=== PATIENT | female | born 1980 | race American Indian/Alaskan Native ===

== ENCOUNTER 2017-10-19 13:29 | Emergency (ER) | payer MEDICARE ==
[2017-10-19 14:34] VITALS: BP 150/92
[2017-10-19] MEDS ORDERED: PERCOCET 5/325 PO ONE (15:37)
[2017-10-19] MEDS ORDERED: MOTRIN PO ONE (15:37)
[2017-10-19] MEDS: ROBAXIN PO ONE ×2 (16:20→17:28)
--- NOTE | 2017-10-19 16:35 | Cat Scan Report ---
FINAL REPORT EXAM: CT CERVICAL SPINE WO CON HISTORY: fall injury TECHNIQUE: Helical axial CT imaging of the cervical spine. Images are reconstructed in the sagittal and coronal planes. PRIORS: None. FINDINGS: The vertebral bodies have normal height and alignment. There is no evidence of fracture or subluxation. The paraspinous soft tissues are unremarkable. IMPRESSION: No evidence of acute fracture or subluxation.
--- NOTE | 2017-10-19 16:35 | Emergency Department Report ---
Blank Doc - Documentation Documentation: Patient is a 36-year-old black female who is presenting with neck pain. Patient states that she fell and was seen at another hospital approximately 6 days ago. Patient states multiple x-rays were done but she's had increased worsening pain of her neck. Patient also has some pain in the shoulder and wrist and ankles as well but states those are minor compared to her neck pain. Patient feels as though his heart doesn't keep her head lift it up. I did contact [facility] regarding her x-rays. Charge nurse reported to me that the x-ray of the C-spine was read as a poor film secondary to patient 's body habitus and that no acute process was seen however was recommended that the patient receive a CT noncontrast to rule out fracture if pain persisted. Patient did not receive a CT at that time. The patient will have a CT here to rule out any small fractures that may have been missed from the XR
--- NOTE | 2017-10-19 16:58 | Emergency Department Report ---
ED Fall HPI - General Chief Complaint: Medical Clearance Stated Complaint: FALL/LEFT SIDE PAIN Time Seen by Provider: 10/19/17 15:28 Source: patient Mode of arrival: Stretcher - History of Present Illness Initial Comments: This is a 36-year-old female nontoxic, well nourished in appearance, no acute signs of distress presents to the ED with c/o of neck pain status post fall 6 days ago. Patient stated she had a fall in [facility] in the bathroom and had several xrays. Patient describes pain as aching and worsening when movement of the neck. Patient stated she was prescribed Flexeril with no relief. Patient denies any bladder or bowel stability, head trauma, headache, fever, chills, nausea, vomiting, chest pain or shortness of breath. Patient states allergies to sulfa, albuterol, aspirin and penicillin. MD Complaint: fall -: days(s) (6) Fall From: standing Fall Witnessed: no Place Fall Occurred: other ([facility]) Loss of Consciousness: none Prolonged Down Time?: no Symptoms Prior to Fall: none Severity: mild Severity scale (0 -10): 8 Context: tripped/slipped Associated Symptoms: neck pain. denies: headache, numbness, weakness, chest paint, shortness of breath, abdominal pain, hematuria, unable to walk, lightheaded, vertigo, confusion - Related Data Home Medications Medication Instructions Recorded Confirmed Last Taken Elviteg/Tracey/Emtric/Tenofo Ala 1 each PO DAILY 12/01/16 12/01/16 11/30/16 [Genvoya (Nf)] Gabapentin [Neurontin] 300 mg PO BID 12/01/16 12/01/16 11/30/16 Insulin Glargine [Lantus] 70 units SQ QHS 12/01/16 12/01/16 11/30/16 QUEtiapine [SEROquel] 25 mg PO QHS 12/01/16 12/01/16 11/30/16 cloNIDine [Catapres] 0.1 mg PO DAILY 12/01/16 12/01/16 11/30/16 Previous Rx's Medication Instructions Recorded Last Taken Type Detemir (Nf) [Levemir (Nf)] 75 units SUB-Q QHS 30 Days units 12/04/16 Unknown Rx Fluconazole [Diflucan TAB] 150 mg PO ONCE #1 tablet 12/04/16 Unknown Rx Insulin Aspart Prot/Aspart(Nf) 15 units SQ TIDWM 30 Days 12/04/16 11/30/16 Rx [NovoLOG Mix 70/30 VIAL] Levofloxacin [Levaquin TAB] 750 mg PO Q24H #7 tablet 12/04/16 Unknown Rx Pantoprazole [Protonix TAB] 40 mg PO DAILY #14 tablet 12/04/16 Unknown Rx oxyCODONE /ACETAMINOPHEN [Percocet 1 tab PO BID PRN #10 tablet 12/04/16 Unknown Rx 5/325] HYDROcodone/ACETAMINOPHEN [[place] 1 each PO Q8H PRN #12 tablet 10/19/17 Unknown Rx 7.5-325 Tablet] methOCARBAMOL [Robaxin TAB] 500 mg PO BID #20 tab 10/19/17 Unknown Rx Allergies Allergy/AdvReac Type Severity Reaction Status Date / Time Sulfa (Sulfonamide Allergy Nausea Verified 09/09/13 16:39 Antibiotics) albuterol AdvReac Mild Unknown Verified 03/02/16 08:44 aspirin AdvReac Rash Verified 09/09/13 16:39 Penicillins AdvReac Rash Verified 09/09/13 16:39 ED Review of Systems ROS: Stated complaint: FALL/LEFT SIDE PAIN Other details as noted in HPI Constitutional: denies: chills, fever Eyes: denies: eye pain, eye discharge, vision change ENT: denies: ear pain, throat pain Respiratory: denies: cough, shortness of breath, wheezing Cardiovascular: denies: chest pain, palpitations Endocrine: no symptoms reported Gastrointestinal: denies: abdominal pain, nausea, diarrhea Genitourinary: denies: urgency, dysuria, discharge Musculoskeletal: denies: back pain, joint swelling, arthralgia Skin: denies: rash, lesions Neurological: denies: headache, weakness, paresthesias Psychiatric: denies: anxiety, depression Hematological/Lymphatic: denies: easy bleeding, easy bruising ED Past Medical Hx - Past Medical History Hx Hypertension: Yes Hx Congestive Heart Failure: Yes Hx Diabetes: Yes Hx Liver Disease: Yes (elevated liver enzymes) Hx Sickle Cell Disease: Yes (trait) Hx Seizures: No Hx Asthma: No Hx COPD: Yes Hx HIV: Yes Additional medical history: SLEEP APNEA - Surgical History Hx Pacemaker: No Hx Internal Defibrillator: No Hx Cholecystectomy: Yes (2012) Hx Breast Surgery: Yes (I&D AXILL[facility] 2012) - Social History Smoking Status: Never Smoker - Medications Home Medications: Home Medications Medication Instructions Recorded Confirmed Last Taken Type Elviteg/Tracey/Emtric/Tenofo Ala 1 each PO DAILY 12/01/16 12/01/16 11/30/16 History [Genvoya (Nf)] Gabapentin [Neurontin] 300 mg PO BID 12/01/16 12/01/16 11/30/16 History Insulin Glargine [Lantus] 70 units SQ QHS 12/01/16 12/01/16 11/30/16 History QUEtiapine [SEROquel] 25 mg PO QHS 12/01/16 12/01/16 11/30/16 History cloNIDine [Catapres] 0.1 mg PO DAILY 12/01/16 12/01/16 11/30/16 History Detemir (Nf) [Levemir (Nf)] 75 units SUB-Q QHS 30 Days units 12/04/16 Unknown Rx Fluconazole [Diflucan TAB] 150 mg PO ONCE #1 tablet 12/04/16 Unknown Rx Insulin Aspart Prot/Aspart(Nf) 15 units SQ TIDWM 30 Days 12/04/16 12/01/1611/30 Rx [NovoLOG Mix 70/30 VIAL] Levofloxacin [Levaquin TAB] 750 mg PO Q24H #7 tablet 12/04/16 Unknown Rx Pantoprazole [Protonix TAB] 40 mg PO DAILY #14 tablet 12/04/16 Unknown Rx oxyCODONE /ACETAMINOPHEN [Percocet 1 tab PO BID PRN #10 tablet 12/04/16 Unknown Rx 5/325] HYDROcodone/ACETAMINOPHEN [[place] 1 each PO Q8H PRN #12 tablet 10/19/17 Unknown Rx 7.5-325 Tablet] methOCARBAMOL [Robaxin TAB] 500 mg PO BID #20 tab 10/19/17 Unknown Rx ED Physical Exam - General Limitations: No Limitations General appearance: alert, in no apparent distress - Head Head exam: Present: atraumatic, normocephalic - Eye Eye exam: Present: normal appearance, PERRL, EOMI Pupils: Present: normal accommodation - ENT ENT exam: Present: normal exam, mucous membranes moist - Neck Neck exam: Present: normal inspection, tenderness, full ROM. Absent: meningismus, lymphadenopathy - Respiratory Respiratory exam: Present: normal lung sounds bilaterally. Absent: respiratory distress, wheezes, rales, rhonchi, stridor - Cardiovascular Cardiovascular Exam: Present: regular rate, normal rhythm, normal heart sounds. Absent: irregular rhythm, systolic murmur, diastolic murmur, rubs, gallop - GI/Abdominal GI/Abdominal exam: Present: soft, normal bowel sounds - Extremities Exam Extremities exam: Present: normal inspection, full ROM, normal capillary refill. Absent: tenderness - Back Exam Back exam: Present: normal inspection, full ROM, tenderness, paraspinal tenderness (cervical region). Absent: CVA tenderness (R), CVA tenderness (L), muscle spasm, vertebral tenderness, rash noted - Expanded Back Exam Expanded Back exam: Absent: saddle anesthesia Back exam: Negative Straight Leg Raising: Left, Right - Neurological Exam Neurological exam: Present: alert, oriented X3, normal gait - Psychiatric Psychiatric exam: Present: normal affect, normal mood - Skin Skin exam: Present: warm, dry, intact, normal color. Absent: rash ED Course Vital Signs 10/19/17 14:30 Temperature 98.2 F Pulse Rate 112 H Respiratory 18 Rate Blood Pressure 150/92 O2 Sat by Pulse 97 Oximetry - Reevaluation(s) Reevaluation #1: 10/19/17 16:59 Patient is speaking in full sentences with no signs of distress noted. - Consultations Consultation #1: 10/19/17 16:59 Patient has been consulted with Dr. Andrews about patient history, physical exam , and CT results and examined and screened patient and agrees to ED plan of care and discharge plan of care. ED Medical Decision Making - Medical Decision Making This is a 36-year-old female that presents with cervical muscle strain. Patient is stable and was examined by me and Dr. Andrews. Dr. Andrews contacted the hospital and spoken with charge nurse about previous xrays with no fractures. CT of cervical spine obtained in the ED within normal limits. Patient is notified of CT results with no questions noted by the apatient. There is no nuchal rigidity or stiffness neck present. Patient received a soft cervical collar at discharge. Patient also received Robaxin and [place] and was instructed not to operate any machinery while taking this as a cause drowsiness. Patient was referred to Follow-up with a primary care doctor in 3- 5 days or if symptoms worsen and continue return to emergency room as soon as possible. At time of discharge, the patient does not seem toxic or ill in appearance. No acute signs of distress noted. Patient agrees to discharge treatment plan of care. No further questions noted by the patient. Critical care attestation.: If time is entered above; I have spent that time in minutes in the direct care of this critically ill patient, excluding procedure time. ED Disposition Clinical Impression: Cervical muscle strain Qualifiers: Encounter type: initial encounter Qualified Code(s): S16.1XXA - Strain of muscle, fascia and tendon at neck level, initial encounter Disposition: TO HOME OR SELFCARE Is pt being admited?: No Does the pt Need Aspirin: No Condition: Stable Instructions: Muscle Strain (ED) Additional Instructions: Follow-up with a primary care doctor in 3-5 days or if symptoms worsen and continue return to emergency room as soon as possible. Prescriptions: HYDROcodone/ACETAMINOPHEN [[place] 7.5-325 Tablet] 1 each PO Q8H PRN #12 tablet PRN Reason: Pain methOCARBAMOL [Robaxin TAB] 500 mg PO BID #20 tab Referrals: SENAIT LAMAR DO [Primary Care Provider] - 3-5 Days PRIMARY CAREMD [Referring] - 3-5 Days [facility] [Outside] - 3-5 Days [facility] [Outside] - 3-5 Days Forms: Work/School Release Form(ED)
== END 2017-10-19 17:27 | disposition home or self-care (01) ==
LOC: ED 13:29
DX: S16.1XXA Strain of muscle, fascia and tendon at neck level, initial encounter (principal); I10 Essential (primary) hypertension; I50.9 Heart failure, unspecified; E11.9 Type 2 diabetes mellitus without complications; J44.9 Chronic obstructive pulmonary disease, unspecified; W18.30XA Fall on same level, unspecified, initial encounter; Y93.89 Activity, other specified; Y92.89 Other specified places as the place of occurrence of the external cause; Y99.8 Other external cause status
CPT/HCPCS: 72125

== ENCOUNTER 2019-09-03 10:54 | Inpatient (IN) | payer MEDICARE ==
[2019-09-03] MEDS ORDERED: FAMOTIDINE 20 MG/2 ML INJ IV ONE (11:24)
[2019-09-03] MEDS ORDERED: ONDANSETRON 4 MG/2 ML INJ IV ONE (11:24)
[2019-09-03] MEDS ORDERED: SODIUM CHLORIDE 0.9% 1000 ML 1,000 ML IV ONE ×3 (11:24→14:24)
[2019-09-03 12:11] LABS: Basophils % (Auto) 0.3 % (0.0-1.8); Eosinophils % (Auto) 0.3 % (0.0-4.3); Hematocrit 34.6 % (30.3-42.9); Hemoglobin 11.2 gm/dl (10.1-14.3); Lymphocytes # (Auto) 1.6 K/mm3 (1.2-5.4); Mean Corpuscular HGB Conc 32 % (30-34); Mean Corpuscular Volume 85 fl (79-97); Monocytes # (Auto) 0.6 K/mm3 (0.0-0.8); Monocytes % (Auto) 5.4 % (0.0-7.3); Platelet Count 627 K/mm3 (140-440); Red Blood Count 4.08 M/mm3 (3.65-5.03); Red Cell Distribution Width 16.5 % (13.2-15.2)
[2019-09-03 12:33] LABS: Alanine Aminotransferase 102 units/L (7-56); Albumin 2.6 g/dL (3.9-5); BUN/Creatinine Ratio 42; Blood Urea Nitrogen 42 mg/dL (7-17); Calcium 8.6 mg/dL (8.4-10.2); Hemolysis Index 2
--- NOTE | 2019-09-03 12:52 | XRay Report ---
CHEST 1 VIEW INDICATION / CLINICAL INFORMATION: chest pain. COMPARISON: 08/25/2019 FINDINGS: SUPPORT DEVICES: None. HEART / MEDIASTINUM: No significant abnormality. LUNGS / PLEURA: Right upper lobe opacity is unchanged. No pneumothorax. ADDITIONAL FINDINGS: No significant additional findings. IMPRESSION: Right upper lobe opacity is unchanged from 08/25/2019. No other abnormality is seen on today's exam. Signer Name: Clarke Pedro MD FACR Signed: 09/03/2019 12:47 PM Workstation Name: [id number]
[2019-09-03 12:53] LABS: HDL Cholesterol 24 mg/dL (40-59); LDL Cholesterol,Direct 44 mg/dL (50-130)
[2019-09-03 13:03] LABS: Partial Thromboplastin Time 51.4 Sec. (24.2-36.6)
[2019-09-03 13:07] LABS: INR 5.95 (0.87-1.13)
--- NOTE | 2019-09-03 14:06 | Cat Scan Report ---
. CTA CHEST WITH CONTRAST INDICATION : chest pain. TECHNIQUE: Axial imaging performed through the chest, with contrast bolus timing set to maximize opa cification of the pulmonary arteries. Sagittal and coronal reformatted images. 3-plane MIP reformatte d images were obtained. All CT scans at this location are performed using CT dose reduction for ALAR A by means of automated exposure control. 100 mL of intravenous contrast administered. COMPARISON: None FINDINGS: Bolus: Contrast bolus timing is adequate. PTE: No filling defect is present to suggest PTE. Mediastinum: Heart size is normal although there is a large pericardial effusion measuring up to 1.9 cm in thickness anteriorly. No pericardial calcifications or nodularity. The aorta is widely patent and normal caliber. No pathologic mediastinal adenopathy. Lungs: Small bilateral layering pleural effusions are identified. There is ill-defined groundglass o pacity in the right upper lobe measuring up to 4-5 cm in greatest dimension. This probably represents focal congestion although early infiltrate cannot be excluded. There is mild compressive atelectasis in the lower lobes, left greater than right. The remainder of the lungs are clear. Bones: Degenerative changes in the spine with nothing acute. Upper abdomen: Limited imaging of the upper abdomen shows nothing acute. IMPRESSION: No pulmonary embolus is detected. Large pericardial effusion. Small bilateral layering pleural effusions. Focal right upper lobe airspace opacity as described. This probably represents focal congestion. If f ever is present, infiltrate could be considered. Signer Name: Jarod Ta Jr, MD Signed: 09/03/2019 2:01 PM Workstation Name: [id number]
--- NOTE | 2019-09-03 14:14 | Cat Scan Report ---
CT ABDOMEN AND PELVIS WITH CONTRAST HISTORY: Abdominal pain COMPARISON: None. TECHNIQUE: Axial CT images were obtained through the abdomen and pelvis after 100 cc of Omnipaque 300 intravenously. Sagittal and coronal reformatted images. All CT scans at this location are performed using CT dose reduction for ALARA by means of automated exposure control. FINDINGS: CT ABDOMEN: Lung Bases: Small bilateral layering pleural effusions and large pericardial effusion are noted. Liver: No significant abnormality. Biliary: Cholecystectomy. Spleen: The spleen is normal size and contour. A 3.9 x 3.0 x 2.2 cm hypodensity is identified along t he superior border of the spleen. Pancreas: No significant abnormality. Adrenals: No significant abnormality. Kidneys: No significant abnormality. Lymphatics: There are a few borderline to mildly enlarged retroperitoneal lymph nodes. An aortocaval lymph node measures 2.1 x 1.5 cm on image 79, series 3. A left periaortic lymph node measures 1.9 x 1 .6 on image 87, series 3. Vasculature: No significant abnormality. Bowel/Peritoneum: No evidence for bowel obstruction or focal inflammation. The appendix is not confid ently identified, correlate with surgical history. There is small to trace ascites in the abdomen. No free air. CT PELVIS: : The uterus, adnexa and bladder are unremarkable. Osseous Structures: Mild lumbar spondylosis. Additional Findings: None IMPRESSION: Large pericardial effusion and small bilateral pleural effusions. Small ascites. A 3.9 x 3.0 x 2.2 cm splenic hypodensity is identified of uncertain etiology. This does not have the typical appearance of a splenic hemangioma. A small splenic infarct or perisplenic collection could b e considered. No acute inflammatory process is appreciated in the abdomen or pelvis. Signer Name: Jarod Ta Jr, MD Signed: 09/03/2019 2:10 PM Workstation Name: [id number]
[2019-09-03] MEDS ORDERED: INSULIN REGULAR, HUMAN 100 UNITS/1 ML IV ONE (14:24)
[2019-09-03] MEDS ORDERED: SODIUM BICARB 8.4% 50 MEQ/50 ML SYRINGE IV ONE (14:24)
[2019-09-03] MEDS ORDERED: DEXTROSE 50% IN WATER (25GM) 50 ML SYRINGE IV ONE (14:24)
[2019-09-03] MEDS ORDERED: KETOROLAC 30 MG/1 ML INJ IV ONE (14:41)
[2019-09-03] MEDS ORDERED: diphenhydrAMINE 50 MG/ML VIAL IV ONE (14:41)
--- NOTE | 2019-09-03 15:09 | Emergency Department Report ---
ED General Adult HPI - General Chief complaint: Chest Pain Stated complaint: CHEST PAIN Time Seen by Provider: 09/03/19 11:23 Source: patient, family, EMS Mode of arrival: Stretcher Limitations: No Limitations - History of Present Illness Initial comments: Patient is a 38-year-old F Iranian female who recently was treated here in our hospital for a acute anterior wall ST elevation CA. Patient had a PCI and stent was placed in the LAD. Patient also was found to have a left ventricular thrombus and was started on Coumadin. Patient has a history of hypertension and is HIV positive as well. Patient states that yesterday she started having returns with chest discomfort as well as epigastric pain she has had several episodes of nausea vomiting. Patient states that her arms and legs were swollen. She denies any current fever cough cold or congestion. She does state that her chest discomfort is worse with deep breathing. Severity scale (0 -10): 8 - Related Data Previous Rx's Medication Instructions Recorded Last Taken Type Detemir (Nf) [Levemir (Nf)] 75 units SUB-Q QHS 30 Days units 12/04/16 Unknown Rx Fluconazole [Diflucan TAB] 150 mg PO ONCE #1 tablet 12/04/16 08/17/19 Rx HYDROcodone/ACETAMINOPHEN [[place] 1 each PO Q8H PRN #12 tablet 10/19/17 08/17/19 Rx 7.5-325 Tablet] ALBUTEROL NEB's [Proventil 0.083% 2.5 mg IH Q4HRT PRN #1 nebu 08/30/19 Unknown Rx NEBS] AtorvaSTATin [Lipitor] 40 mg PO QHS #30 tablet 08/30/19 Unknown Rx Elviteg/Tracey/Emtric/Tenofo [place] 1 each PO DAILY 30 Days #30 08/30/19 Unknown Rx [Genvoya (Nf)] Gabapentin 300 mg PO BID #60 cap 08/30/19 Unknown Rx Insulin Aspart Prot/Aspart(Nf) 25 units SQ BID 30 Days units 08/30/19 Unknown Rx [NovoLOG Mix 70/30 VIAL] Pantoprazole [Protonix TAB] 40 mg PO DAILY #30 tablet 08/30/19 Unknown Rx QUEtiapine [SEROquel] 25 mg PO QHS #30 08/30/19 Unknown Rx Ticagrelor [Brilinta] 90 mg PO BID #60 tablet 08/30/19 Unknown Rx Warfarin [Coumadin] 7.5 mg PO DAILY@1700 #30 tablet 08/30/19 Unknown Rx carvediloL [Coreg] 25 mg PO BID #60 tablet 08/30/19 Unknown Rx cloNIDine [Catapres] 0.1 mg PO BID PRN #60 08/30/19 Unknown Rx lisinopriL [Zestril TAB] 20 mg PO QDAY #30 tablet 08/30/19 Unknown Rx methOCARBAMOL [Robaxin TAB] 500 mg PO PRN #40 08/30/19 Unknown Rx oxyCODONE /ACETAMINOPHEN [Percocet 1 tab PO BID PRN #10 tablet 08/30/19 Unknown Rx 5/325 mg] Allergies Allergy/AdvReac Type Severity Reaction Status Date / Time Sulfa (Sulfonamide Allergy Nausea Verified 09/09/13 16:39 Antibiotics) albuterol AdvReac Mild Unknown Verified 03/02/16 08:44 aspirin AdvReac Rash Verified 09/09/13 16:39 Penicillins AdvReac Rash Verified 09/09/13 16:39 ED Review of Systems ROS: Stated complaint: CHEST PAIN Other details as noted in HPI Comment: All other systems reviewed and negative ED Past Medical Hx - Past Medical History Hx Hypertension: Yes Hx Congestive Heart Failure: Yes Hx Diabetes: Yes Hx Liver Disease: Yes (elevated liver enzymes) Hx Sickle Cell Disease: Yes (trait) Hx Seizures: No Hx Asthma: No Hx COPD: Yes Hx HIV: Yes Additional medical history: SLEEP APNEA - Surgical History Hx Pacemaker: No Hx Internal Defibrillator: No Hx Cholecystectomy: Yes (2012) Hx Breast Surgery: Yes (I&D AXILLARY ABCSESS 2012) - Social History Smoking Status: Never Smoker - Medications Home Medications: Home Medications Medication Instructions Recorded Confirmed Last Taken Type Detemir (Nf) [Levemir (Nf)] 75 units SUB-Q QHS 30 Days units 12/04/16 08/24/19 Unknown Rx Fluconazole [Diflucan TAB] 150 mg PO ONCE #1 tablet 12/04/16 08/24/19 08/17/19 Rx HYDROcodone/ACETAMINOPHEN [[place] 1 each PO Q8H PRN #12 tablet 10/19/17 08/24/19 08/17/19 Rx 7.5-325 Tablet] ALBUTEROL NEB's [Proventil 0.083% 2.5 mg IH Q4HRT PRN #1 nebu 08/30/19 Unknown Rx NEBS] AtorvaSTATin [Lipitor] 40 mg PO QHS #30 tablet 08/30/19 Unknown Rx Elviteg/Tracey/Emtric/Ten[place] 1 each PO DAILY 30 Days #30 08/30/19 Unknown Rx [Genvoya (Nf)] Gabapentin 300 mg PO BID #60 cap 08/30/19 Unknown Rx Insulin Aspart Prot/Aspart(Nf) 25 units SQ BID 30 Days units 08/30/19 Unknown Rx [NovoLOG Mix 70/30 VIAL] Pantoprazole [Protonix TAB] 40 mg PO DAILY #30 tablet 08/30/19 Unknown Rx QUEtiapine [SEROquel] 25 mg PO QHS #30 08/30/19 Unknown Rx Ticagrelor [Brilinta] 90 mg PO BID #60 tablet 08/30/19 Unknown Rx Warfarin [Coumadin] 7.5 mg PO DAILY@1700 #30 tablet 08/30/19 Unknown Rx carvediloL [Coreg] 25 mg PO BID #60 tablet 08/30/19 Unknown Rx cloNIDine [Catapres] 0.1 mg PO BID PRN #60 08/30/19 Unknown Rx lisinopriL [Zestril TAB] 20 mg PO QDAY #30 tablet 08/30/19 Unknown Rx methOCARBAMOL [Robaxin TAB] 500 mg PO PRN #40 08/30/19 Unknown Rx oxyCODONE /ACETAMINOPHEN [Percocet 1 tab PO BID PRN #10 tablet 08/30/19 Unknown Rx 5/325 mg] ED Physical Exam - General Limitations: No Limitations General appearance: alert, in distress - Head Head exam: Present: atraumatic, normocephalic - Eye Eye exam: Present: normal appearance. Absent: PERRL, EOMI - ENT ENT exam: Present: mucous membranes moist - Neck Neck exam: Present: normal inspection - Respiratory Respiratory exam: Present: normal lung sounds bilaterally, respiratory distress (Tachypnea). Absent: wheezes, rales, rhonchi - Cardiovascular Cardiovascular Exam: Present: regular rate, normal rhythm, normal heart sounds. Absent: systolic murmur, diastolic murmur, rubs, gallop - GI/Abdominal GI/Abdominal exam: Present: soft, tenderness (Epigastric), normal bowel sounds. Absent: distended, guarding - Extremities Exam Extremities exam: Present: normal inspection, pedal edema - Back Exam Back exam: Present: normal inspection - Neurological Exam Neurological exam: Present: alert, oriented X3 - Psychiatric Psychiatric exam: Present: normal affect, normal mood - Skin Skin exam: Present: warm, dry, intact, normal color. Absent: rash ED Course Vital Signs 09/03/19 09/03/19 09/03/19 11:12 11:15 11:45 Temperature Pulse Rate 83 Respiratory 27 H Rate Blood Pressure 92/48 91/50 Blood Pressure [Left] O2 Sat by Pulse 100 99 98 Oximetry 09/03/19 09/03/19 09/03/19 12:00 12:23 12:30 Temperature 98.4 F Pulse Rate 84 83 81 Respiratory 29 H 19 32 H Rate Blood Pressure 82/48 91/49 Blood Pressure 91/49 [Left] O2 Sat by Pulse 97 98 98 Oximetry 09/03/19 09/03/19 13:30 13:45 Temperature Pulse Rate 85 Respiratory 35 H Rate Blood Pressure 98/58 95/64 Blood Pressure [Left] O2 Sat by Pulse 95 97 Oximetry ED Medical Decision Making - Lab Data Result diagrams: 09/03/19 11:53 09/03/19 11:53 Lab Results 09/03/19 09/03/19 09/03/19 Range/Units 11:53 11:53 11:53 WBC 10.9 (4.5-11.0) K/mm3 RBC 4.08 (3.65-5.03) M/mm3 Hgb 11.2 (10.1-14.3) gm/dl Hct 34.6 (30.3-42.9) % MCV 85 (79-97) fl MCH 28 (28-32) pg MCHC 32 (30-34) % RDW 16.5 H (13.2-15.2) % Plt Count 627 H (140-440) K/mm3 Lymph % (Auto) 15.0 (13.4-35.0) % [place] % (Auto) 5.4 (0.0-7.3) % Eos % (Auto) 0.3 (0.0-4.3) % Baso % (Auto) 0.3 (0.0-1.8) % Lymph # 1.6 (1.2-5.4) K/mm3 [place] # 0.6 (0.0-0.8) K/mm3 Eos # 0.0 (0.0-0.4) K/mm3 Baso # 0.0 (0.0-0.1) K/mm3 Seg Neutrophils % 79.0 H (40.0-70.0) % Seg Neutrophils # 8.6 H (1.8-7.7) K/mm3 PT (12.2-14.9) Sec. INR (0.87-1.13) APTT (24.2-36.6) Sec. Sodium (137-145) mmol/L Potassium (3.6-5.0) mmol/L Chloride (98-107) mmol/L Carbon Dioxide (22-30) mmol/L Anion Gap mmol/L BUN (7-17) mg/dL Creatinine (0.7-1.2) mg/dL Estimated GFR ml/min BUN/Creatinine Ratio % Glucose (65-100) mg/dL Calcium (8.4-10.2) mg/dL Total Bilirubin (0.1-1.2) mg/dL AST (5-40) units/L ALT (7-56) units/L Alkaline Phosphatase (35-129) units/L Troponin T (0.00-0.029) ng/mL NT-Pro-B Natriuret Pep 1401 H (0-450) pg/mL Total Protein (6.3-8.2) g/dL Albumin (3.9-5) g/dL Albumin/Globulin Ratio % Triglycerides (2-149) mg/dL Cholesterol (50-199) mg/dL LDL Cholesterol Direct (50-130) mg/dL HDL Cholesterol (40-59) mg/dL Cholesterol/HDL Ratio % Lipase (13-60) units/L HCG, Qual Negative (Negative) 09/03/19 09/03/19 Range/Units 11:53 12:36 WBC (4.5-11.0) K/mm3 RBC (3.65-5.03) M/mm3 Hgb (10.1-14.3) gm/dl Hct (30.3-42.9) % MCV (79-97) fl MCH (28-32) pg MCHC (30-34) % RDW (13.2-15.2) % Plt Count (140-440) K/mm3 Lymph % (Auto) (13.4-35.0) % [place] % (Auto) (0.0-7.3) % Eos % (Auto) (0.0-4.3) % Baso % (Auto) (0.0-1.8) % Lymph # (1.2-5.4) K/mm3 [place] # (0.0-0.8) K/mm3 Eos # (0.0-0.4) K/mm3 Baso # (0.0-0.1) K/mm3 Seg Neutrophils % (40.0-70.0) % Seg Neutrophils # (1.8-7.7) K/mm3 PT 54.8 H (12.2-14.9) Sec. INR 5.95 H* (0.87-1.13) APTT 51.4 H (24.2-36.6) Sec. Sodium 124 L (137-145) mmol/L Potassium 7.1 H* (3.6-5.0) mmol/L Chloride 90.1 L (98-107) mmol/L Carbon Dioxide 19 L (22-30) mmol/L Anion Gap 22 mmol/L BUN 42 H (7-17) mg/dL Creatinine 1.0 (0.7-1.2) mg/dL Estimated GFR > 60 ml/min BUN/Creatinine Ratio 42 % Glucose 461 H (65-100) mg/dL Calcium 8.6 (8.4-10.2) mg/dL Total Bilirubin 0.20 (0.1-1.2) mg/dL AST 114 H (5-40) units/L ALT 102 H (7-56) units/L Alkaline Phosphatase 619 H (35-129) units/L Troponin T 1.110 H* (0.00-0.029) ng/mL NT-Pro-B Natriuret Pep (0-450) pg/mL Total Protein 7.1 (6.3-8.2) g/dL Albumin 2.6 L (3.9-5) g/dL Albumin/Globulin Ratio 0.6 % Triglycerides 134 (2-149) mg/dL Cholesterol 84 (50-199) mg/dL LDL Cholesterol Direct 44 L (50-130) mg/dL HDL Cholesterol 24 L (40-59) mg/dL Cholesterol/HDL Ratio 3.50 % Lipase 35 (13-60) units/L HCG, Qual (Negative) - EKG Data -: EKG Interpreted by Vt - EKG Data 09/03/19 15:08 EKG shows sinus rhythm a rate of 84 [place] is normal intervals normal there is slight [address] elevation in 1 and aVL. There is poor R wave progression present. This was compared to EKG from 08/24/2019 which showed that the patient did have an acute anterior lateral infarct. EKG today does show great improvement of the ST segments compared to previous. - Radiology Data Reporting MD: Clarke Pedro Dictation Time: September 03, 2019 11:47 Marble Installer: Not available Supervisor Tree Trimming Date: CHEST 1 VIEW INDICATION / CLINICAL INFORMATION: chest pain. COMPARISON: 08/25/2019 FINDINGS: SUPPORT DEVICES: None. HEART / MEDIASTINUM: No significant abnormality. LUNGS / PLEURA: Right upper lobe opacity is unchanged. No pneumothorax. ADDITIONAL FINDINGS: No significant additional findings. IMPRESSION: Right upper lobe opacity is unchanged from 08/25/2019. No other abnormality is seen on today's exam. Signer Name: Clarke Pedro MD FACR Signed: 09/03/2019 11:47 AM Workstation Name: [id number] . CTA CHEST WITH CONTRAST INDICATION : chest pain. TECHNIQUE: Axial imaging performed through the chest, with contrast bolus timing set to maximize opacification of the pulmonary arteries. Sagittal and coronal reformatted images. 3-plane MIP reformatted images were obtained. All CT scans at this location are performed using CT dose reduction for ALARA by means of automated exposure control. 100 mL of intravenous contrast administered. COMPARISON: None FINDINGS: Bolus: Contrast bolus timing is adequate. PTE: No filling defect is present to suggest PTE. Mediastinum: Heart size is normal although there is a large pericardial effusion measuring up to 1.9 cm in thickness anteriorly. No pericardial calcifications or nodularity. The aorta is widely patent and normal caliber. No pathologic mediastinal adenopathy. Lungs: Small bilateral layering pleural effusions are identified. There is ill-defined groundglass opacity in the right upper lobe measuring up to 4-5 cm in greatest dimension. This probably represents focal congestion although early infiltrate cannot be excluded. There is mild compressive atelectasis in the lower lobes, left greater than right. The remainder of the lungs are clear. Bones: Degenerative changes in the spine with nothing acute. Upper abdomen: Limited imaging of the upper abdomen shows nothing acute. IMPRESSION: No pulmonary embolus is detected. Large pericardial effusion. Small bilateral layering pleural effusions. Focal right upper lobe airspace opacity as described. This probably represents focal congestion. If fever is present, infiltrate could be considered. Signer Name: Jarod Ta Jr, MD CT ABDOMEN AND PELVIS WITH CONTRAST HISTORY: Abdominal pain COMPARISON: None. TECHNIQUE: Axial CT images were obtained through the abdomen and pelvis after 100 cc of Omnipaque 300 intravenously. Sagittal and coronal reformatted images. All CT scans at this location are performed using CT dose reduction for ALARA by means of automated exposure control. FINDINGS: CT ABDOMEN: Lung Bases: Small bilateral layering pleural effusions and large pericardial effusion are noted. Liver: No significant abnormality. Biliary: Cholecystectomy. Spleen: The spleen is normal size and contour. A 3.9 x 3.0 x 2.2 cm hypodensity is identified along the superior border of the spleen. Pancreas: No significant abnormality. Adrenals: No significant abnormality. Kidneys: No significant abnormality. Lymphatics: There are a few borderline to mildly enlarged retroperitoneal lymph nodes. An aortocaval lymph node measures 2.1 x 1.5 cm on image 79, series 3. A left periaortic lymph node measures 1.9 x 1.6 on image 87, series 3. Vasculature: No significant abnormality. Bowel/Peritoneum: No evidence for bowel obstruction or focal inflammation. The appendix is not confidently identified, correlate with surgical history. There is small to trace ascites in the abdomen. No free air. CT PELVIS: : The uterus, adnexa and bladder are unremarkable. Osseous Structures: Mild lumbar spondylosis. Additional Findings: None IMPRESSION: Large pericardial effusion and small bilateral pleural effusions. Small ascites. A 3.9 x 3.0 x 2.2 cm splenic hypodensity is identified of uncertain etiology. This does not have the typical appearance of a splenic hemangioma. A small splenic infarct or perisplenic collection could be consi dered. No acute inflammatory process is appreciated in the abdomen or pelvis. Signer Name: Jarod Ta Jr, MD Signed - Medical Decision Making Patient is a 38-year-old F Iranian female status post CA treated with LAD stent. Patient is presented with chest discomfort and hypotension. Reviewed the patient's laboratory studies she does appear to be dehydrated. Patient states she has been trying to keep food down but started vomiting earlier today. Patient states that she is been compliant with her medications. Patient was started on IV fluids and her blood pressures responded well. Patient sodium chloride level low and the patient is prerenal supporting the diagnosis of dehydration. Patient also has elevated potassium which is not hemolyzed. Pat ient was given sodium bicarb D50 and 10 of insulin. Patient is shown to have a pericardial effusion which was not present on the echocardiogram earlier this week. Patient will have a stat echocardiogram ordered. Dr. Fierro with cardiology service has been consulted and will see the patient. Patient will be admitted to the ICU. Critical Care Time: Yes (45) Critical care attestation.: If time is entered above; I have spent that time in minutes in the direct care of this critically ill patient, excluding procedure time. ED Disposition Clinical Impression: Pericardial effusion, Pleural effusion, Respiratory distress, Acute renal insufficiency, Dehydration, Hyperkalemia, Hyponatremia, Hypochloremia Disposition: OP ADMIT IP TO THIS HOSP Is pt being admited?: Yes Does the pt Need Aspirin: No Condition: Stable Time of Disposition: 15:15
[2019-09-03] MEDS ORDERED: HYDROcodone/ACETAMINOPHEN 7.5-325MG TAB PO PRN (16:15)
[2019-09-03] MEDS ORDERED: DOCUSATE SODIUM 100 MG CAP PO PRN (16:15)
[2019-09-03] MEDS ORDERED: ALBUTEROL 2.5 MG/3 ML NEBU IH PRN (16:15)
[2019-09-03] MEDS ORDERED: LISINOPRIL 20 MG TAB PO SCH (17:00)
[2019-09-03] MEDS ORDERED: WARFARIN NO DOSE TODAY PO ONE (17:00)
[2019-09-03] MEDS ORDERED: WARFARIN 7.5 MG TAB PO SCH (17:00)
--- NOTE | 2019-09-03 18:09 | Consultation ---
History of Present Illness Consult date: 09/03/19 Consult reason: congestive heart failure, other (pericardial effusion) History of present illness: The patient is a 38-year-old woman with multiple medical problems. She has a history of cervical cancer, hepatitis C disease, and states that she lives in a home hospice condition. Last week, she was admitted to the hospital with acute coronary syndrome, underwent a cardiac catheterization with coronary intervention and the 3.0 mm bare-metal stent placed to the mid LAD. Post intervention, there was a thrombotic occlusion of the distal LAD which was recommended for medical management, did not respond to export catheter thromb ectomy. On echocardiogram, there was relatively well present left ventricular ejection fraction of 40-45%, but there was apical hypokinesis associated with a laminated thrombus. As a consequence she was discharged on dual oral antiplatelet therapy as well as warfarin. She presents to the hospital today, 4 days post discharge, with shortness of breath, atypical chest pain. In the emergency room, a CT of the chest was ordered that reported the presence of a pericardial effusion. We performed a limited bedside 2-D echocardiogram that revealed a small to moderate-sized circumferential pericardial effusion, with no signs of cardiac tamponade. The effusion was not present on the echocardiogram just 5 days ago. In addition, there has been a deterioration in left ventricular systolic function, currently overall left ventricular systolic function is moderately to severely impaired. Laboratory values show a severe hyperkalemia, of 7.1, hyponatremia 124, elevated BUN of 42, and elevated liver transaminases. There is a mild troponin elevation, and the INR is 5.9, supratherapeutic on warfarin. EKG is sinus rhythm with QS complexes in the anterior wall, consistent with her recent anter ior myocardial infarction. Past History Past Medical History: acute GA, CAD, COPD Medications and Allergies Allergies Allergy/AdvReac Type Severity Reaction Status Date / Time Sulfa (Sulfonamide Allergy Nausea Verified 09/09/13 16:39 Antibiotics) albuterol AdvReac Mild Unknown Verified 03/02/16 08:44 aspirin AdvReac Rash Verified 09/09/13 16:39 Penicillins AdvReac Rash Verified 09/09/13 16:39 Home Medications Medication Instructions Recorded Confirmed Last Taken Type Detemir (Nf) [Levemir (Nf)] 75 units SUB-Q QHS 30 Days units 12/04/16 09/03/19 Unknown Rx Fluconazole [Diflucan TAB] 150 mg PO ONCE #1 tablet 12/04/16 09/03/19 08/17/19 Rx HYDROcodone/ACETAMINOPHEN [[place] 1 each PO Q8H PRN #12 tablet 10/19/17 09/03/19 08/17/19 Rx 7.5-325 Tablet] ALBUTEROL NEB's [Proventil 0.083% 2.5 mg IH Q4HRT PRN #1 nebu 08/30/19 09/03/19 Unknown Rx NEBS] AtorvaSTATin [Lipitor] 40 mg PO QHS #30 tablet 08/30/19 09/03/19 Unknown Rx Elviteg/Tracey/Emtric/Tenofo Ala 1 each PO DAILY 30 Days #30 08/30/19 09/03/19 Unknown Rx [Genvoya (Nf)] Gabapentin 300 mg PO BID #60 cap 08/30/19 09/03/19 Unknown Rx Insulin Aspart Prot/Aspart(Nf) 25 units SQ BID 30 Days units 08/30/19 09/03/19 Unknown Rx [NovoLOG Mix 70/30 VIAL] Pantoprazole [Protonix TAB] 40 mg PO DAILY #30 tablet 08/30/19 09/03/19 Unknown Rx QUEtiapine [SEROquel] 25 mg PO QHS #30 08/30/19 09/03/19 Unknown Rx Ticagrelor [Brilinta] 90 mg PO BID #60 tablet 08/30/19 09/03/19 Unknown Rx Warfarin [Coumadin] 7.5 mg PO DAILY@1700 #30 tablet 08/30/19 09/03/19 Unknown Rx carvediloL [Coreg] 25 mg PO BID #60 tablet 08/30/19 09/03/19 Unknown Rx cloNIDine [Catapres] 0.1 mg PO BID PRN #60 08/30/19 09/03/19 Unknown Rx lisinopriL [Zestril TAB] 20 mg PO QDAY #30 tablet 08/30/19 09/03/19 Unknown Rx methOCARBAMOL [Robaxin TAB] 500 mg PO PRN #40 08/30/19 09/03/19 Unknown Rx oxyCODONE /ACETAMINOPHEN [Percocet 1 tab PO BID PRN #10 tablet 08/30/19 09/03/19 Unknown Rx 5/325 mg] Docusate Sodium [Colace] 100 mg PO BID PRN 09/03/19 09/03/19 Unknown History Active Meds: Active Medications Acetaminophen/Hydrocodone Bitart ([place] 7.5/325) 1 each PO Q8H PRN PRN Reason: PAIN Albuterol (Proventil) 2.5 mg IH Q4HRT PRN PRN Reason: Shortness Of Breath Carvedilol (Coreg) 12.5 mg PO BID CRISTIAN Docusate Sodium (Colace) 100 mg PO BID PRN PRN Reason: conatipATION Insulin Human Isoph/Insulin Regular (Humulin 70/30) 25 unit SUB-Q BID CRISTIAN Lisinopril (Zestril) 10 mg PO QDAY CRISTIAN Last Admin: 09/03/19 17:48 Dose: Not Given Documented by: Methocarbamol (Robaxin) 500 mg PO PRN CRISTIAN Miscellaneous Medication (Elviteg/Tracey/Emtric/Tenofo Ala) 1 each PO DAILY CRISTIAN Pantoprazole Sodium (Protonix) 40 mg PO DAILY CRISTIAN Quetiapine Fumarate (Seroquel) 25 mg PO QHS CRISTIAN Ticagrelor (Brilinta) 90 mg PO BID CRISTIAN Review of Systems Cardiovascular: chest pain, shortness of breath, no orthopnea, no palpitations, no rapid/irregular heart beat, no edema, no syncope, no lightheadedness Physical Examination Vital Signs Pulse Ox 100 09/03/19 11:12 General appearance: no acute distress, obese HEENT: Positive: PERRL Neck: Positive: neck supple Cardiac: Positive: Reg Rate and Rhythm Lungs: Positive: Decreased Breath Sounds Neuro: Positive: Grossly Intact Abdomen: Positive: Soft Female genitourinary: deferred Skin: Positive: Clear Extremities: Absent: edema Results 09/03/19 11:53 09/03/19 11:53 Cardiac Enzymes 09/03/19 Range/Units 11:53 AST 114 H (5-40) units/L Coagulation 09/03/19 Range/Units 12:36 PT 54.8 H (12.2-14.9) Sec. INR 5.95 H* (0.87-1.13) APTT 51.4 H (24.2-36.6) Sec. Lipids 09/03/19 Range/Units 11:53 Triglycerides 134 (2-149) mg/dL Cholesterol 84 (50-199) mg/dL HDL Cholesterol 24 L (40-59) mg/dL Cholesterol/HDL Ratio 3.50 % CBC 09/03/19 Range/Units 11:53 WBC 10.9 (4.5-11.0) K/mm3 RBC 4.08 (3.65-5.03) M/mm3 Hgb 11.2 (10.1-14.3) gm/dl Hct 34.6 (30.3-42.9) % Plt Count 627 H (140-440) K/mm3 Lymph # 1.6 (1.2-5.4) K/mm3 [place] # 0.6 (0.0-0.8) K/mm3 Eos # 0.0 (0.0-0.4) K/mm3 Baso # 0.0 (0.0-0.1) K/mm3 Comprehensive Metabolic Panel 09/03/19 Range/Units 11:53 Sodium 124 L (137-145) mmol/L Potassium 7.1 H* (3.6-5.0) mmol/L Chloride 90.1 L (98-107) mmol/L Carbon Dioxide 19 L (22-30) mmol/L BUN 42 H (7-17) mg/dL Creatinine 1.0 (0.7-1.2) mg/dL Glucose 461 H (65-100) mg/dL Calcium 8.6 (8.4-10.2) mg/dL AST 114 H (5-40) units/L ALT 102 H (7-56) units/L Alkaline Phosphatase 619 H (35-129) units/L Total Protein 7.1 (6.3-8.2) g/dL Albumin 2.6 L (3.9-5) g/dL EKG interpretations - Telemetry EKG Rhythm: Sinus Rhythm Assessment and Plan - Patient Problems (1) Pericardial effusion Current Visit: Yes Status: Acute Plan to address problem: Pericardial effusion is small to moderate, with no cardiac tamponade. The etiology of the effusion is unclear at this time, we will get serial echocardiograms for follow-up. (2) Ischemic cardiomyopathy Current Visit: Yes Status: Acute Plan to address problem: Continue medical therapy for coronary artery disease and ischemic cardiomyopathy including dual antiplatelet therapy for recent coronary stent procedure. I will stop atorvastatin therapy in the setting of abnormal liver function tests. (3) Left ventricular apical thrombus Current Visit: Yes Status: Acute Plan to address problem: INR was supratherapeutic, warfarin will be held initially, and restarted at lower doses for a target INR of 2.0-3.0. Continue warfarin therapy will have to be carefully considered in this setting of a history of hepatitis C and her abnormal LFTs.
[2019-09-03] MEDS: PANTOPRAZOLE 40 MG TAB PO SCH (18:36)
[2019-09-03] MEDS ORDERED: PANTOPRAZOLE 40 MG TAB PO ONE (18:36)
[2019-09-03] MEDS ORDERED: QUEtiapine 25 MG TAB PO SCH (22:00)
[2019-09-03] MEDS ORDERED: carvediloL 25 MG TAB PO SCH (22:00)
[2019-09-03] MEDS ORDERED: ASPART SQ SCH (22:00)
[2019-09-03] MEDS ORDERED: INSULIN ASPART PROT SQ SCH (22:00)
[2019-09-03] MEDS ORDERED: SODIUM CHLORIDE 0.9% 1000 ML 1,000 ML IV SCH (22:00)
[2019-09-03] MEDS ORDERED: CALCIUM GLUCONATE 2,000 MG in SODIUM CHLORIDE 0.9% 100 ML IV ONE (22:00)
[2019-09-03] MEDS: TICAGRELOR 90 MG TAB PO SCH (23:01)
[2019-09-03] MEDS: GABAPENTIN 300 MG CAP PO SCH (23:03)
[2019-09-03] MEDS: INSULIN NPH/REGULAR 70/30 INJ SUB-Q SCH (23:23)
[2019-09-04] MEDS: MORPHINE 2 MG/1 ML INJ IV PRN ×3 (00:57→10:16)
--- NOTE | 2019-09-04 06:53 | History and Physical Report ---
History of Present Illness Date of examination: 09/03/19 Date of admission: 09/03/19 15:15 Chief complaint: Feeeling weak 3 days History of present illness: 38-year-old F [place] female who recently was treated here for STEMI --had a PCI and stent placed in the LAD. Patient also was found to have a left ventricular thrombus and was started on Coumadin. Patient has a history of hypertension and is HIV positive as well. Patient states that yesterday she started having chest discomfort as well as epigastric pain she has had several episodes of nausea vomiting. Patient states that her arms and legs were swollen. She denies any current fever cough cold or congestion. She does state that her chest discomfort is worse with deep breathing. Her BP was low in ED 79/46 Dischare summary 08/30/2019 38-year-old morbidly obese -[place]ian female patient with significant past medical history of HIV hypertension diabetes mellitus coronary artery disease presented to the emergency room with was brought to the emergency room via EMS EMS as code STEMI. Per STEMI protocol patient was evaluated by electrical line mechanic and had emergency cardiac cath status post PCI Patient is transferred to ICU for close observation. In ICU patient is sleeping because of sedation, awakened easily Complains of some discomfort, denies chest pain or shortness of breath Vital signs reviewed Doing well --General debility, morbid obesity, multiple medical problems PT evaluation and treatment Referred to Dr Pizarro for Bariatric surgeryt Ambulate as tolerated Past Medical Histor Hypertension: Yes Congestive Heart Failure: Yes Diabetes: Yes iver Disease: Yes (elevated liver enzymes) Sickle Cell Disease: Yes (trait COPD: Yes HIV: Yes Additional medical history: SLEEP APNEA Surgical History Hx Cholecystectomy: Yes (2012) Hx Breast Surgery: Yes (I&D AXILL[facility] 2012) Stent 08/2019 -Social History no smoke FH Htn - Medications Home Medications: Home Medications Medication Instructions Recorded Confirmed Last Taken Type Detemir (Nf) [Levemir (Nf)] 75 units SUB-Q QHS 30 Days units 12/04/16 08/24/19 Unknown Rx Fluconazole [Diflucan TAB] 150 mg PO ONCE #1 tablet 12/04/16 08/24/19 08/17/19 Rx HYDROcodone/ACETAMINOPHEN [[place] 1 each PO Q8H PRN #12 tablet 10/19/17 08/24/19 08/17/19 Rx 7.5-325 Tablet] ALBUTEROL NEB's [Proventil 0.083% 2.5 mg IH Q4HRT PRN #1 nebu 08/30/19 Unknown Rx NEBS] AtorvaSTATin [Lipitor] 40 mg PO QHS #30 tablet 08/30/19 Unknown Rx Elviteg/Tracey/Emtric/Tenofo Ala 1 each PO DAILY 30 Days #30 08/30/19 Unknown Rx [Genvoya (Nf)] Gabapentin 300 mg PO BID #60 cap 08/30/19 Unknown Rx Insulin Aspart Prot/Aspart(Nf) 25 units SQ BID 30 Days units 08/30/19 Unknown Rx [NovoLOG Mix 70/30 VIAL] Pantoprazole [Protonix TAB] 40 mg PO DAILY #30 tablet 08/30/19 Unknown Rx QUEtiapine [SEROquel] 25 mg PO QHS #30 08/30/19 Unknown Rx Ticagrelor [Brilinta] 90 mg PO BID #60 tablet 08/30/19 Unknown Rx Warfarin [Coumadin] 7.5 mg PO DAILY@1700 #30 tablet 08/30/19 Unknown Rx carvediloL [Coreg] 25 mg PO BID #60 tablet 08/30/19 Unknown Rx cloNIDine [Catapres] 0.1 mg PO BID PRN #60 08/30/19 Unknown Rx lisinopriL [Zestril TAB] 20 mg PO QDAY #30 tablet 08/30/19 Unknown Rx methOCARBAMOL [Robaxin TAB] 500 mg PO PRN #40 08/30/19 Unknown Rx oxyCODONE /ACETAMINOPHEN [Percocet 1 tab PO BID PRN #10 tablet 08/30/19 Unknown Rx 5/325 mg] Review of Systems ROS: Stated complaint: CHEST PAIN Other details as noted in HPI Comment: All other systems reviewed and negative Past History Past Medical History: acute DC, CAD, COPD Medications and Allergies Allergies Allergy/AdvReac Type Severity Reaction Status Date / Time Sulfa (Sulfonamide Allergy Nausea Verified 09/09/13 16:39 Antibiotics) albuterol AdvReac Mild Unknown Verified 03/02/16 08:44 aspirin AdvReac Rash Verified 09/09/13 16:39 Penicillins AdvReac Rash Verified 09/09/13 16:39 Home Medications Medication Instructions Recorded Confirmed Last Taken Type Detemir (Nf) [Levemir (Nf)] 75 units SUB-Q QHS 30 Days units 12/04/16 09/03/19 Unknown Rx Fluconazole [Diflucan TAB] 150 mg PO ONCE #1 tablet 12/04/16 09/03/19 08/17/19 Rx HYDROcodone/ACETAMINOPHEN [[place] 1 each PO Q8H PRN #12 tablet 10/19/17 09/03/19 08/17/19 Rx 7.5-325 Tablet] ALBUTEROL NEB's [Proventil 0.083% 2.5 mg IH Q4HRT PRN #1 nebu 08/30/19 09/03/19 Unknown Rx NEBS] AtorvaSTATin [Lipitor] 40 mg PO QHS #30 tablet 08/30/19 09/03/19 Unknown Rx Elviteg/Tracey/Emtric/Tenofo Ala 1 each PO DAILY 30 Days #30 08/30/19 09/03/19 U nknown Rx [Genvoya (Nf)] Gabapentin 300 mg PO BID #60 cap 08/30/19 09/03/19 Unknown Rx Insulin Aspart Prot/Aspart(Nf) 25 units SQ BID 30 Days units 08/30/19 09/03/19 Unknown Rx [NovoLOG Mix 70/30 VIAL] Pantoprazole [Protonix TAB] 40 mg PO DAILY #30 tablet 08/30/19 09/03/19 Unknown Rx QUEtiapine [SEROquel] 25 mg PO QHS #30 08/30/19 09/03/19 Unknown Rx Ticagrelor [Brilinta] 90 mg PO BID #60 tablet 08/30/19 09/03/19 Unknown Rx Warfarin [Coumadin] 7.5 mg PO DAILY@1700 #30 tablet 08/30/19 09/03/19 Unknown Rx carvediloL [Coreg] 25 mg PO BID #60 tablet 08/30/19 09/03/19 Unknown Rx cloNIDine [Catapres] 0.1 mg PO BID PRN #60 08/30/19 09/03/19 Unknown Rx lisinopriL [Zestril TAB] 20 mg PO QDAY #30 tablet 08/30/19 09/03/19 Unknown Rx methOCARBAMOL [Robaxin TAB] 500 mg PO PRN #40 08/30/19 09/03/19 Unknown Rx oxyCODONE /ACETAMINOPHEN [Percocet 1 tab PO BID PRN #10 tablet 08/30/19 09/03/19 Unknown Rx 5/325 mg] Docusate Sodium [Colace] 100 mg PO BID PRN 09/03/19 09/03/19 Unknown History Active Meds: Active Medications Acetaminophen/Hydrocodone Bitart ([place] 7.5/325) 1 each PO Q8H PRN PRN Reason: PAIN Albuterol (Proventil) 2.5 mg IH Q4HRT PRN PRN Reason: Shortness Of Breath Docusate Sodium (Colace) 100 mg PO BID PRN PRN Reason: conatipATION Gabapentin (Gabapentin) 300 mg PO BID [facility] Last Admin: 09/03/19 23:03 Dose: Not Given Documented by: Sodium Chloride (Nacl 0.9% 1000 Ml) 1,000 mls @ 100 mls/hr IV DIRECT [facility] Stop: 09/04/19 07:00 Last Admin: 09/03/19 23:03 Dose: 100 mls/hr Documented by: Insulin Human Isoph/Insulin Regular (Humulin 70/30) 25 unit SUB-Q BID [facility] Last Admin: 09/03/19 23:23 Dose: 25 unit Documented by: Methocarbamol (Robaxin) 500 mg PO PRN [facility] Miscellaneous Medication (Elviteg/Tracey/Emtric/Tenofo Ala) 1 each PO DAILY [facility] Morphine Sulfate (Morphine) 2 mg IV Q4H PRN PRN Reason: Pain , Severe (7-10) Last Admin: 09/04/19 00:57 Dose: 2 mg Documented by: Pantoprazole Sodium (Protonix) 40 mg PO DAILY [facility] Last Admin: 09/03/19 18:36 Dose: 40 mg Documented by: Quetiapine Fumarate (Seroquel) 25 mg PO QHS [facility] Last Admin: 09/03/19 23:02 Dose: Not Given Documented by: Ticagrelor (Brilinta) 90 mg PO BID [facility] Last Admin: 09/03/19 23:01 Dose: 90 mg Documented by: Exam - Constitutional Vitals: Temp Pulse Resp BP Pulse Ox 98.4 F 96 H 20 123/62 98 09/04/19 03:51 09/04/19 03:51 09/04/19 03:51 09/04/19 03:51 09/04/19 03:51 General appearance: Present: no acute distress, well-nourished - EENT Eyes: Present: PERRL ENT: hearing intact, clear oral mucosa - Neck Neck: Present: supple, normal ROM - Respiratory Respiratory effort: normal Respiratory: bilateral: CTA - Cardiovascular Heart rate: 78 Rhythm: regular Heart Sounds: Present: S1 & S2. Absent: rub, click - Extremities Extremities: pulses symmetrical, No edema Peripheral Pulses: within normal limits - Abdominal General gastrointestinal: Present: soft, non-tender, non-distended, normal bowel sounds Female genitourinary: Present: normal - Integumentary Integumentary: Present: clear, warm, dry - Musculoskeletal Musculoskeletal: gait normal, strength equal bilaterally - Psychiatric Psychiatric: appropriate mood/affect, intact judgment & insight - Neurologic Neurologic: CNII-XII intact, moves all extremities Results - Labs CBC & Chem 7: 09/03/19 11:53 09/03/19 11:53 Labs: Laboratory Last Values WBC 10.9 K/mm3 (4.5-11.0) 09/03/19 11:53 RBC 4.08 M/mm3 (3.65-5.03) 09/03/19 11:53 Hgb 11.2 gm/dl (10.1-14.3) 09/03/19 11:53 Hct 34.6 % (30.3-42.9) 09/03/19 11:53 MCV 85 fl (79-97) 09/03/19 11:53 MCH 28 pg (28-32) 09/03/19 11:53 MCHC 32 % (30-34) 09/03/19 11:53 RDW 16.5 % (13.2-15.2) H 09/03/19 11:53 Plt Count 627 K/mm3 (140-440) H 09/03/19 11:53 Lymph % (Auto) 15.0 % (13.4-35.0) 09/03/19 11:53 [place] % (Auto) 5.4 % (0.0-7.3) 09/03/19 11:53 Eos % (Auto) 0.3 % (0.0-4.3) 09/03/19 11:53 Baso % (Auto) 0.3 % (0.0-1.8) 09/03/19 11:53 Lymph # 1.6 K/mm3 (1.2-5.4) 09/03/19 11:53 [place] # 0.6 K/mm3 (0.0-0.8) 09/03/19 11:53 Eos # 0.0 K/mm3 (0.0-0.4) 09/03/19 11:53 Baso # 0.0 K/mm3 (0.0-0.1) 09/03/19 11:53 Seg Neutrophils % 79.0 % (40.0-70.0) H 09/03/19 11:53 Seg Neutrophils # 8.6 K/mm3 (1.8-7.7) H 09/03/19 11:53 PT 54.8 Sec. (12.2-14.9) H 09/03/19 12:36 INR 5.95 (0.87-1.13) H* 09/03/19 12:36 APTT 51.4 Sec. (24.2-36.6) H 09/03/19 12:36 Sodium 124 mmol/L (137-145) L 09/03/19 11:53 Potassium 7.1 mmol/L (3.6-5.0) H* 09/03/19 11:53 Chloride 90.1 mmol/L (98-107) L 09/03/19 11:53 Carbon Dioxide 19 mmol/L (22-30) L 09/03/19 11:53 Anion Gap 22 mmol/L 09/03/19 11:53 BUN 42 mg/dL (7-17) H 09/03/19 11:53 Creatinine 1.0 mg/dL (0.7-1.2) 09/03/19 11:53 Estimated GFR > 60 ml/min 09/03/19 11:53 BUN/Creatinine Ratio 42 % 09/03/19 11:53 Glucose 461 mg/dL (65-100) H 09/03/19 11:53 POC Glucose 427 (70-105) H 09/03/19 22:57 Calcium 8.6 mg/dL (8.4-10.2) 09/03/19 11:53 Total Bilirubin 0.20 mg/dL (0.1-1.2) 09/03/19 11:53 AST 114 units/L (5-40) H 09/03/19 11:53 ALT 102 units/L (7-56) H 09/03/19 11:53 Alkaline Phosphatase 619 units/L (35-129) H 09/03/19 11:53 Troponin T 0.956 ng/mL (0.00-0.029) H* 09/03/19 14:28 NT-Pro-B Natriuret Pep 1401 pg/mL (0-450) H 09/03/19 11:53 Total Protein 7.1 g/dL (6.3-8.2) 09/03/19 11:53 Albumin 2.6 g/dL (3.9-5) L 09/03/19 11:53 Albumin/Globulin Ratio 0.6 % 09/03/19 11:53 Triglycerides 134 mg/dL (2-149) 09/03/19 11:53 Cholesterol 84 mg/dL (50-199) 09/03/19 11:53 LDL Cholesterol Direct 44 mg/dL (50-130) L 09/03/19 11:53 HDL Cholesterol 24 mg/dL (40-59) L 09/03/19 11:53 Cholesterol/HDL Ratio 3.50 % 09/03/19 11:53 Lipase 35 units/L (13-60) 09/03/19 11:53 HCG, Qual Negative (Negative) 09/03/19 11:53 Short CBC 09/03/19 Range/Units 11:53 WBC 10.9 (4.5-11.0) K/mm3 Hgb 11.2 (10.1-14.3) gm/dl Hct 34.6 (30.3-42.9) % Plt Count 627 H (140-440) K/mm3 BMP 09/03/19 11:53 Sodium 124 L Potassium 7.1 H* Chloride 90.1 L Carbon Dioxide 19 L BUN 42 H Creatinine 1.0 Glucose 461 H Calcium 8.6 Cardiac Enzymes 09/03/19 09/03/19 Range/Units 11:53 14:28 Troponin T 1.110 H* 0.956 H* (0.00-0.029) ng/mL Liver Function 09/03/19 Range/Units 11:53 Total Bilirubin 0.20 (0.1-1.2) mg/dL AST 114 H (5-40) units/L ALT 102 H (7-56) units/L Alkaline Phosphatase 619 H (35-129) units/L Albumin 2.6 L (3.9-5) g/dL Assessment and Plan Assessment and plan: A/p Pericardial effusion ECHO to be repeated Cardiology consultation HYPOTENSIONClonidine and Lisinopril stoppwd Caarvwedilol decreased to 12.[address] elevation DC--recent admission Emergency cardiac cath, status post PCI of LAD Continue dual antiplatelets, patient is allergic to aspirin Cardiology recommend Brilinta twice daily Continue beta-blockers,LKisinopril stopped LV thrombus on echo; Lovenox 1 mg/kg body weight every 12 And Coumadin, target INR 2-3 INR daily, cardiology following INR therapeutic Dyslipidemia; statins Type 2 diabetes mellitus; uncontrolled Optimize insulin dose, diabetic education, nutrition education History of HIV; Patient will follow with ID/ healthcare department Upon discharge Morbid obesity; BMI 45.2 Advised exercise and weight reduction when medically stable DVT prophylaxis; Lovenox Advance Directives: Yes (FC) VTE prophylaxis?: Chemical Plan of care discussed with patient/family: Yes
[2019-09-04 07:57] VITALS: BP 122/86
--- NOTE | 2019-09-04 08:05 | Progress Note ---
Assessment and Plan Assessment and plan: Patient is a 38 yo woman with a history of HIV, Cervical cancer, Hepatitis C, hypertension and IDDM type 2 who presents to [facility] ED with recurrent CP. She was admitted 08/24/2019 for STEMI s/p successful PCI to LAD and thrombosis with complete occlusion of distal LAD that was not corrected. Patient then was discharged on 08/30/2019 but return on 09/03/2019 with chest pains but more so epigastric abdominal pains. In the emergency room, a CT of the chest was ordered that reported the presence of a pericardial effusion. Cardiology performed a limited bedside 2-D echocardiogram that revealed a small to moderate-sized circumferential pericardial effusion, with no signs of cardiac tamponade. The effusion was not present on the echocardiogram 5 days ago. In addition, there has been a deterioration in left ventricular systolic function, currently overall left ventricular systolic function is moderately to severely impaired per Cardiology. Patient was found to have severe hyponatremia of 124, severe hy perkalemia, of 7.1, elevated BUN of 42, and elevated liver transaminases. There is a mild troponin elevation, and the INR is 5.9, supratherapeutic on warfarin. EKG is sinus rhythm with QS complexes in the anterior wall, consistent with her recent anterior myocardial infarction. * pCXR: right upper opacity unchanged from prior CXR * CTA chest FINDINGS: Bolus: Contrast bolus timing is adequate. PTE: No filling defect is present to suggest PTE. Mediastinum: Heart size is normal although there is a large pericardial effusion measuring up to 1.9 cm in thickness anteriorly. No pericardial calcifications or nodularity. The aorta is widely pat ent and normal caliber. No pathologic mediastinal adenopathy. Lungs: Small bilateral layering pleural effusions are identified. There is ill-defined groundglass opacity in the right upper lobe measuring up to 4-5 cm in greatest dimension. This probably represents focal congestion although early infiltrate cannot be excluded. There is mild compressive atelectasis in the lower lobes, left greater than right. The remainder of the lungs are clear. Bones: D egenerative changes in the spine with nothing acute. Upper abdomen: Limited imaging of the upper abdomen shows nothing acute. IMPRESSION: No pulmonary embolus is detected. Large pericardial effusion. Small bilateral layering pleural effusions. Focal right upper lobe airspace opacity as described. This probably represents focal congestion. If fever is present, infiltrate could be considered. * CT abd/pelvis with contrast IMPRESSION: Large pericardial effusion and small bilateral pleural effusions. Small ascites. A 3.9 x 3.0 x 2.2 cm splenic hypodensity is identified of uncertain etiology. This does not have the typical appearance of a splenic hemangioma. A small splenic infarct or perisplenic collection could be considered. No acute inflammatory process is appreciated in the abdomen or pelvis. Recurrent Chest pains, more so epigastric pains, suspect gastroparesis vs other intraabdominal disorder vs cardiac vs other: Cardiology is following, consult GI, downgrade diet to NPO/bowel rest to clears tomorrow, treat with PPI Pericardial Effusion: serial ECHO, monitor closely, Cardiology following Ischemic Cardiomyopathy, acute systolic heart failure: Cardiology following Left Ventricular Apical thrombus: a/c on hold, restart once INR 2-3 Hyperkalemia, severe with perserved renal function, Cr 1.0: patient received Calcium, insulin, bicarb yesterday, repeat potassium level stat Hyponatremia, severe, hypo-osm: IVF but very carefully due to the systolic heart failure HIV by history: on antivirals Type 1 DM with hyperglycemia: add SSI, adjust insulin Coagulopathy, Supratherapeutic INR, normal H/H: hold Warfarin, serial coags, let trend down Elevated transaminases, history of Hepatitis C: GI consult Splenic hypodensity, etiology uncertain: consulted GS because with supratherapeutic INR and ?splenic infarct, high risk of bleeding, I called GS, watch H/H closely DVT ppx already high INR CCT 32 minutes History Interval history: Patient was seen and examined. Follow-up on current diagnosis of Abdominal pains, epigastric area, feels like food gets stuck associated with nausea and after eating. Overnight uneventful as no events directly reported to me. Patient denies any chest pain, shortness breath, nausea/vomiting or severe headaches. Imaging, nursing note, chart, labs and old chart reviewed. Discussed with patient. Hospitalist Physical - Physical exam Narrative exam: Gen: WDWN, NAD, Awake, Alert, Orientated x 3 HEENT: NCAT, EOMI, PERRL, OP Clear Neck: supple, no adenopathy, no thyromegaly, no JVD CVS/Heart: RRR, normal S1S2, pulses present bilaterally Chest/Lungs: diminised bs bilaterally, Symmetrical chest expansion, good air entry bilaterally GI/Abdomen: soft, epigastric abd pains, good bowel sounds, no rebound, tender ness out of porportion to exam /Bladder: no suprapubic tenderness, no CVA or paraspinal tenderness Extermity/Skin: no c/c/e, no obvious rash MSK: FROM x 4 Neuro: CN 2-12 grossly intact, no new focal deficits Psych: calm - Constitutional Vitals: Temp Pulse Resp BP Pulse Ox 98.1 F 67 18 122/86 96 09/04/19 07:27 09/04/19 07:27 09/04/19 07:27 09/04/19 07:27 09/04/19 07:27 General appearance: Present: no acute distress, well-nourished Results - Labs CBC & Chem 7: 09/03/19 11:53 09/03/19 11:53 Labs: Laboratory Last Values WBC 10.9 K/mm3 (4.5-11.0) 09/03/19 11:53 RBC 4.08 M/mm3 (3.65-5.03) 09/03/19 11:53 Hgb 11.2 gm/dl (10.1-14.3) 09/03/19 11:53 Hct 34.6 % (30.3-42.9) 09/03/19 11:53 MCV 85 fl (79-97) 09/03/19 11:53 MCH 28 pg (28-32) 09/03/19 11:53 MCHC 32 % (30-34) 09/03/19 11:53 RDW 16.5 % (13.2-15.2) H 09/03/19 11:53 Plt Count 627 K/mm3 (140-440) H 09/03/19 11:53 Lymph % (Auto) 15.0 % (13.4-35.0) 09/03/19 11:53 [place] % (Auto) 5.4 % (0.0-7.3) 09/03/19 11:53 Eos % (Auto) 0.3 % (0.0-4.3) 09/03/19 11:53 Baso % (Auto) 0.3 % (0.0-1.8) 09/03/19 11:53 Lymph # 1.6 K/mm3 (1.2-5.4) 09/03/19 11:53 [place] # 0.6 K/mm3 (0.0-0.8) 09/03/19 11:53 Eos # 0.0 K/mm3 (0.0-0.4) 09/03/19 11:53 Baso # 0.0 K/mm3 (0.0-0.1) 09/03/19 11:53 Seg Neutrophils % 79.0 % (40.0-70.0) H 09/03/19 11:53 Seg Neutrophils # 8.6 K/mm3 (1.8-7.7) H 09/03/19 11:53 PT 54.8 Sec. (12.2-14.9) H 09/03/19 12:36 INR 5.95 (0.87-1.13) H* 09/03/19 12:36 APTT 51.4 Sec. (24.2-36.6) H 09/03/19 12:36 Sodium 124 mmol/L (137-145) L 09/03/19 11:53 Potassium 7.1 mmol/L (3.6-5.0) H* 09/03/19 11:53 Chloride 90.1 mmol/L (98-107) L 09/03/19 11:53 Carbon Dioxide 19 mmol/L (22-30) L 09/03/19 11:53 Anion Gap 22 mmol/L 09/03/19 11:53 BUN 42 mg/dL (7-17) H 09/03/19 11:53 Creatinine 1.0 mg/dL (0.7-1.2) 09/03/19 11:53 Estimated GFR > 60 ml/min 09/03/19 11:53 BUN/Creatinine Ratio 42 % 09/03/19 11:53 Glucose 461 mg/dL (65-100) H 09/03/19 11:53 POC Glucose 427 (70-105) H 09/03/19 22:57 Calcium 8.6 mg/dL (8.4-10.2) 09/03/19 11:53 Total Bilirubin 0.20 mg/dL (0.1-1.2) 09/03/19 11:53 AST 114 units/L (5-40) H 09/03/19 11:53 ALT 102 units/L (7-56) H 09/03/19 11:53 Alkaline Phosphatase 619 units/L (35-129) H 09/03/19 11:53 Troponin T 0.956 ng/mL (0.00-0.029) H* 09/03/19 14:28 NT-Pro-B Natriuret Pep 1401 pg/mL (0-450) H 09/03/19 11:53 Total Protein 7.1 g/dL (6.3-8.2) 09/03/19 11:53 Albumin 2.6 g/dL (3.9-5) L 09/03/19 11:53 Albumin/Globulin Ratio 0.6 % 09/03/19 11:53 Triglycerides 134 mg/dL (2-149) 09/03/19 11:53 Cholesterol 84 mg/dL (50-199) 09/03/19 11:53 LDL Cholesterol Direct 44 mg/dL (50-130) L 09/03/19 11:53 HDL Cholesterol 24 mg/dL (40-59) L 09/03/19 11:53 Cholesterol/HDL Ratio 3.50 % 09/03/19 11:53 Lipase 35 units/L (13-60) 09/03/19 11:53 HCG, Qual Negative (Negative) 09/03/19 11:53 Active Medications - Current Medications Current Medications: Generic Name Dose Route Start Last Admin Trade Name Freq PRN Reason Stop Dose Admin Acetaminophen/Hydrocodone Bitart 1 each 09/03/19 16:15 [place] 7.5/325 PO Q8H PRN PAIN Albuterol 2.5 mg 09/03/19 16:15 Proventil IH Q4HRT PRN Shortness Of Breath Docusate Sodium 100 mg 09/03/19 16:15 Colace PO BID PRN conatipATION Gabapentin 300 mg 09/03/19 22:00 09/03/19 23:03 Gabapentin PO Not Given BID [facility] Insulin Human Isoph/Insulin Regular 25 unit 09/03/19 22:00 09/03/19 23:23 Humulin 70/30 SUB-Q 25 unit BID [facility] Administration Methocarbamol 500 mg 09/03/19 17:00 Robaxin PO PRN [facility]IAN Miscellaneous Medication 1 each 09/04/19 10:00 Elviteg/Tracey/Emtric/Tenofo Ala PO DAILY [facility] Morphine Sulfate 2 mg 09/04/19 00:27 09/04/19 05:05 Morphine IV 2 mg Q4H PRN Administration Pain , Severe (7-10) Pantoprazole Sodium 40 mg 09/03/19 17:00 09/03/19 18:36 Protonix PO 40 mg DAILY [facility] Administration Quetiapine Fumarate 25 mg 09/03/19 22:00 09/03/19 23:02 Seroquel PO Not Given QHS [facility] Ticagrelor 90 mg 09/03/19 22:00 09/03/19 23:01 Brilinta PO 90 mg BID [facility] Administration
[2019-09-04 09:07] LABS: INR 6.56 (0.87-1.13)
[2019-09-04] MEDS ORDERED: [UNRECOGNIZED DRUG - OTHER] PO SCH (10:00)
[2019-09-04] MEDS: TICAGRELOR 90 MG TAB PO SCH (10:08)
[2019-09-04] MEDS: PANTOPRAZOLE 40 MG TAB PO SCH (10:09)
[2019-09-04] MEDS: GABAPENTIN 300 MG CAP PO SCH (10:10)
[2019-09-04] MEDS: INSULIN NPH/REGULAR 70/30 INJ SUB-Q SCH (10:10)
[2019-09-04 11:31] LABS: BUN/Creatinine Ratio 42; Blood Urea Nitrogen 38 mg/dL (7-17); Calcium 8.4 mg/dL (8.4-10.2); Hemolysis Index 11
--- NOTE | 2019-09-04 11:40 | Consultation ---
History of Present Illness Consult date: 09/04/19 Reason for consult: abdominal pain Requesting physician: DANTE CHAO Chief complaint: upper abdominal pain - History of present illness History of present illness: 38yo F with multiple medical problems whom we are asked to see for stat general surgery consult due to epigastric pain. Patient has a complicated history of the last few weeks. Proximately 2 weeks ago she was admitted to [facility] for a pneumonia. Soon after discharge she was admitted to [facility] for an acute [place]. She had a stent placement and stayed in the hospital about a week. She reports that during that entire time she had pain underneath her left breast and that continued at the time of discharge. She had difficulty tolerating a diet at home. She always felt "full". 2 days prior to admission she began to have epigastric pain. It was a constant pain which worsened with trying to sit upright. Eating did not bother it. It only made her feel "full". She was not able to eat very much. She was felt as though she would feel better if she could vomit. She reports that she was brought to the emergency room by ambulance when her mother found her unresponsive and her limbs were cold and stiff. ER evaluation showed a new pericardial effusion and a hypodense region in the spleen of uncertain significance. Patient reports the pain is unchanged. It makes it difficult for her to sleep. It does not radiate. There is no pain currently in the left upper quadrant or left flank. Denies any trauma history. Pt was recently on home hospice prior to admission. Past History Past Medical History: acute [place], CAD, COPD, diabetes, GERD, heart failure, HIV/AIDS, hypertension, liver disease, other (ventricular clot; morbid obesity; sleep apnea; sickle cell trait) Past Surgical History: cholecystectomy, PTCA Social history: denies: smoking, alcohol abuse Medications and Allergies Allergies Allergy/AdvReac Type Severity Reaction Status Date / Time Sulfa (Sulfonamide Allergy Nausea Verified 09/09/13 16:39 Antibiotics) albuterol AdvReac Mild Unknown Verified 03/02/16 08:44 aspirin AdvReac Rash Verified 09/09/13 16:39 Penicillins AdvReac Rash Verified 09/09/13 16:39 Home Medications Medication Instructions Recorded Confirmed Last Taken Type Detemir (Nf) [Levemir (Nf)] 75 units SUB-Q QHS 30 Days units 12/04/16 09/03/19 Unknown Rx Fluconazole [Diflucan TAB] 150 mg PO ONCE #1 tablet 12/04/16 09/03/19 08/17/19 Rx HYDROcodone/ACETAMINOPHEN [[place] 1 each PO Q8H PRN #12 tablet 10/19/17 09/03/19 08/17/19 Rx 7.5-325 Tablet] ALBUTEROL NEB's [Proventil 0.083% 2.5 mg IH Q4HRT PRN #1 nebu 08/30/19 09/03/19 Unknown Rx NEBS] AtorvaSTATin [Lipitor] 40 mg PO QHS #30 tablet 08/30/19 09/03/19 Unknown Rx Elviteg/Tracey/Emtric/Tenofo Ala 1 each PO DAILY 30 Days #30 08/30/19 09/03/19 Unknown Rx [Genvoya (Nf)] Gabapentin 300 mg PO BID #60 cap 08/30/19 09/03/19 Unknown Rx Insulin Aspart Prot/Aspart(Nf) 25 units SQ BID 30 Days units 08/30/19 09/03/19 Unknown Rx [NovoLOG Mix 70/30 VIAL] Pantoprazole [Protonix TAB] 40 mg PO DAILY #30 tablet 08/30/19 09/03/19 Unknown Rx QUEtiapine [SEROquel] 25 mg PO QHS #30 08/30/19 09/03/19 Unknown Rx Ticagrelor [Brilinta] 90 mg PO BID #60 tablet 08/30/19 09/03/19 Unknown Rx Warfarin [Coumadin] 7.5 mg PO DAILY@1700 #30 tablet 08/30/19 09/03/19 Unknown Rx carvediloL [Coreg] 25 mg PO BID #60 tablet 08/30/19 09/03/19 Unknown Rx cloNIDine [Catapres] 0.1 mg PO BID PRN #60 08/30/19 09/03/19 Unknown Rx lisinopriL [Zestril TAB] 20 mg PO QDAY #30 tablet 08/30/19 09/03/19 Unknown Rx methOCARBAMOL [Robaxin TAB] 500 mg PO PRN #40 08/30/19 09/03/19 Unknown Rx oxyCODONE /ACETAMINOPHEN [Percocet 1 tab PO BID PRN #10 tablet 08/30/19 09/03/19 Unknown Rx 5/325 mg] Docusate Sodium [Colace] 100 mg PO BID PRN 09/03/19 09/03/19 Unknown History Active Meds: Active Medications Acetaminophen/Hydrocodone Bitart ([place] 7.5/325) 1 each PO Q8H PRN PRN Reason: PAIN Albuterol (Proventil) 2.5 mg IH Q4HRT PRN PRN Reason: Shortness Of Breath Docusate Sodium (Colace) 100 mg PO BID PRN PRN Reason: conatipATION Gabapentin (Gabapentin) 300 mg PO BID [facility] Last Admin: 09/04/19 10:10 Dose: Not Given Documented by: Insulin Human Isoph/Insulin Regular (Humulin 70/30) 25 unit SUB-Q BID [facility] Last Admin: 09/04/19 10:10 Dose: 25 unit Documented by: Miscellaneous Medication (Elviteg/Tracey/Emtric/Tenofo Ala) 1 each PO DAILY [facility] Morphine Sulfate (Morphine) 2 mg IV Q4H PRN PRN Reason: Pain , Severe (7-10) Last Admin: 09/04/19 10:16 Dose: 2 mg Documented by: Pantoprazole Sodium (Protonix) 40 mg PO DAILY [facility] Last Admin: 09/04/19 10:09 Dose: 40 mg Documented by: Quetiapine Fumarate (Seroquel) 25 mg PO QHS [facility] Last Admin: 09/03/19 23:02 Dose: Not Given Documented by: Ticagrelor (Brilinta) 90 mg PO BID [facility] Last Admin: 09/04/19 10:08 Dose: 90 mg Documented by: Review of Systems - Constitutional chronic pain, no fever, no chills - Cardiovascular chest pain, shortness of breath - Respiratory cough, shortness of breath, dyspnea on exertion, pain on inspiration, sleep apnea - Gastrointestinal abdominal pain, nausea, change in bowel habits, early satiety, dyspepsia/bloating, no vomiting - Genitourinary Genitourinary: no flank pain, no dysuria - Integumentary rash - Psychiatric anxiety Exam Vital Signs Pulse Ox 100 09/03/19 11:12 - General physical appearance Positive: no distress, no pain, obese (morbidly) - Eyes Positive: normal occular movement - Respiratory Positive: normal expansion, other (slight increased effort) - Cardiovascular Rhythm: regular - Abdomen Abdomen: Present: soft, tender (only in epigastric area). Absent: masses, guarding, rigid, wound - Integumentary other (papular rash in some places on the body) - Neurologic Neurologic: alert and oriented to time, place and person, motor strength and sensation are grossly intact - Psychiatric Psychiatric: appropriate mood/affect, intact judgment & insight, cooperative Results - Labs 09/03/19 11:53 09/04/19 10:53 Abnormal lab results 09/03/19 09/03/19 09/03/19 Range/Units 11:53 11:53 11:53 RDW 16.5 H (13.2-15.2) % Plt Count 627 H (140-440) K/mm3 Seg Neutrophils % 79.0 H (40.0-70.0) % Seg Neutrophils # 8.6 H (1.8-7.7) K/mm3 PT (12.2-14.9) Sec. INR (0.87-1.13) APTT (24.2-36.6) Sec. Sodium 124 L (137-145) mmol/L Potassium 7.1 H* (3.6-5.0) mmol/L Chloride 90.1 L (98-107) mmol/L Carbon Dioxide 19 L (22-30) mmol/L BUN 42 H (7-17) mg/dL Glucose 461 H (65-100) mg/dL POC Glucose (70-105) AST 114 H (5-40) units/L ALT 102 H (7-56) units/L Alkaline Phosphatase 619 H (35-129) units/L Troponin T 1.110 H* (0.00-0.029) ng/mL NT-Pro-B Natriuret Pep 1401 H (0-450) pg/mL Albumin 2.6 L (3.9-5) g/dL LDL Cholesterol Direct 44 L (50-130) mg/dL HDL Cholesterol 24 L (40-59) mg/dL 09/03/19 09/03/19 09/03/19 Range/Units 12:36 14:28 22:57 RDW (13.2-15.2) % Plt Count (140-440) K/mm3 Seg Neutrophils % (40.0-70.0) % Seg Neutrophils # (1.8-7.7) K/mm3 PT 54.8 H (12.2-14.9) Sec. INR 5.95 H* (0.87-1.13) APTT 51.4 H (24.2-36.6) Sec. Sodium (137-145) mmol/L Potassium (3.6-5.0) mmol/L Chloride (98-107) mmol/L Carbon Dioxide (22-30) mmol/L BUN (7-17) mg/dL Glucose (65-100) mg/dL POC Glucose 427 H (70-105) AST (5-40) units/L ALT (7-56) units/L Alkaline Phosphatase (35-129) units/L Troponin T 0.956 H* (0.00-0.029) ng/mL NT-Pro-B Natriuret Pep (0-450) pg/mL Albumin (3.9-5) g/dL LDL Cholesterol Direct (50-130) mg/dL HDL Cholesterol (40-59) mg/dL 09/04/19 09/04/19 09/04/19 Range/Units 07:37 08:29 10:53 RDW (13.2-15.2) % Plt Count (140-440) K/mm3 Seg Neutrophils % (40.0-70.0) % Seg Neutrophils # (1.8-7.7) K/mm3 PT 59.2 H (12.2-14.9) Sec. INR 6.56 H* (0.87-1.13) APTT (24.2-36.6) Sec. Sodium 123 L (137-145) mmol/L Potassium (3.6-5.0) mmol/L Chloride 89.9 L (98-107) mmol/L Carbon Dioxide 19 L (22-30) mmol/L BUN 38 H (7-17) mg/dL Glucose 494 H (65-100) mg/dL POC Glucose 430 H (70-105) AST (5-40) units/L ALT (7-56) units/L Alkaline Phosphatase (35-129) units/L Troponin T (0.00-0.029) ng/mL NT-Pro-B Natriuret Pep (0-450) pg/mL Albumin (3.9-5) g/dL LDL Cholesterol Direct (50-130) mg/dL HDL Cholesterol (40-59) mg/dL Diabetes panel 09/03/19 09/04/19 Range/Units 11:53 10:53 Sodium 124 L 123 L (137-145) mmol/L Potassium 7.1 H* (3.6-5.0) mmol/L Chloride 90.1 L 89.9 L (98-107) mmol/L Carbon Dioxide 19 L 19 L (22-30) mmol/L BUN 42 H 38 H (7-17) mg/dL Creatinine 1.0 0.9 (0.7-1.2) mg/dL Glucose 461 H 494 H (65-100) mg/dL Calcium 8.6 8.4 (8.4-10.2) mg/dL AST 114 H (5-40) units/L ALT 102 H (7-56) units/L Alkaline Phosphatase 619 H (35-129) units/L Total Protein 7.1 (6.3-8.2) g/dL Albumin 2.6 L (3.9-5) g/dL Triglycerides 134 (2-149) mg/dL HDL Cholesterol 24 L (40-59) mg/dL Calcium panel 09/03/19 09/04/19 Range/Units 11:53 10:53 Calcium 8.6 8.4 (8.4-10.2) mg/dL Albumin 2.6 L (3.9-5) g/dL Pituitary panel 09/03/19 09/04/19 Range/Units 11:53 10:53 Sodium 124 L 123 L (137-145) mmol/L Potassium 7.1 H* (3.6-5.0) mmol/L Chloride 90.1 L 89.9 L (98-107) mmol/L Carbon Dioxide 19 L 19 L (22-30) mmol/L BUN 42 H 38 H (7-17) mg/dL Creatinine 1.0 0.9 (0.7-1.2) mg/dL Glucose 461 H 494 H (65-100) mg/dL Calcium 8.6 8.4 (8.4-10.2) mg/dL Adrenal panel 09/03/19 09/04/19 Range/Units 11:53 10:53 Sodium 124 L 123 L (137-145) mmol/L Potassium 7.1 H* (3.6-5.0) mmol/L Chloride 90.1 L 89.9 L (98-107) mmol/L Carbon Dioxide 19 L 19 L (22-30) mmol/L BUN 42 H 38 H (7-17) mg/dL Creatinine 1.0 0.9 (0.7-1.2) mg/dL Glucose 461 H 494 H (65-100) mg/dL Calcium 8.6 8.4 (8.4-10.2) mg/dL Total Bilirubin 0.20 (0.1-1.2) mg/dL AST 114 H (5-40) units/L ALT 102 H (7-56) units/L Alkaline Phosphatase 619 H (35-129) units/L Total Protein 7.1 (6.3-8.2) g/dL Albumin 2.6 L (3.9-5) g/dL - Imaging CT scan - abdomen: report reviewed, image reviewed CT scan - pelvis: report reviewed, image reviewed Assessment and Plan - Patient Problems (1) Epigastric pain Current Visit: Yes Status: Acute Plan to address problem: Patient is stable. I do not think the incidental spleen finding is related to the pain. Generally if patient has an acute infarct/infection/bleed involving the spleen, patients generally has significant pain in the left upper quadrant and left flank regions. She does not. There is no clear trauma history to account for her pain. CT scan does not show any surgical issue that may be causing her pain. In correlating the location of the pain and the CT images, it appears that the liver is the only organ in that vicinity. I wonder if she is suffering some hepatic congestion as a result of her heart failure. Perhaps that is causing some of her pain. That may be also contributing to her sense of "fullness" when she tries to eat. The liver may be compressing part of the stomach. At this point, recommend supportive care with pain control. No surgical intervention recommended. As a side note, I spoke with the mother on the phone. She wishes to have the patient transferred to [facility]. I briefly explained to her that from our standpoint, there has to be a medical need for transfer. This is usually because a higher level of care is needed. If there is not a medical necessity for transfer, then usually it is up to the family to find an accepting physician and accept the costs for transfer. I just wanted her to be aware of these potential issues. I said I would pass on their wishes to the attending hospitalist. Discussed with Dr. Chao. Please call with questions. time=35min
--- NOTE | 2019-09-04 12:47 | Progress Note ---
Assessment and Plan Recent anterior wall ST elevation AR (08/23/19) status post primary PCI of the mid LAD using drug eluting stent on Brilinta; has aspirin allergy EF 40-45% by echo 08/24/19 Pericardial effusion -unclear etiology small to moderate, no evidence of tamponade LV apical thrombus - warfarin held d/t supra-therapeutic INR Severe hyperkalemia Hyponatremia Elevated liver transaminase statin therapy held Hypertension Diabetes mellitus History of HIV Obesity Chronic pain Aspirin allergy with tongue swelling and rashes KIMMY on CPAP Echocardiogram has been completed; official results are pending. Subjective Date of service: 09/04/19 Interval history: Remains hyperkalemia, potassium at 6.9 today. INR 6.56. Glucose greater than 400. Patient reports not feeling well. She denies chest pain and unusual shortness of breath. Objective Vital Signs Temp Pulse Pulse Pulse Pulse Resp BP 09/04/19 08:26 20 09/04/19 07:27 98.1 F 67 18 122/86 09/04/19 03:51 98.4 F 96 H 20 123/62 09/03/19 23:34 97.1 F L 84 20 09/03/19 22:00 84 09/03/19 21:39 87 84 84 20 09/03/19 21:26 72 15 71/09/03/19 20:33 98.8 F 87 20 101/59 09/03/19 20:00 89 29 H /09/03/19 19:50 88 28 H 71/09/03/19 19:40 83 29 H 86/57 09/03/19 19:30 88 33 H 86/57 09/03/19 19:20 88 31 H 86/57 09/03/19 19:10 90 27 H 71/26 09/03/19 19:00 88 35 H 100/53 09/03/19 18:50 91 H 31 H 115/53 09/03/19 18:40 89 32 H 72/30 09/03/19 18:30 92 H 17 117/69 09/03/19 18:15 87 35 H 109/68 09/03/19 18:00 89 27 H 98/68 09/03/19 17:46 90 21 110/60 09/03/19 17:03 94 H 24 09/03/19 17:00 94 H 24 94/33 09/03/19 16:05 09/03/19 15:30 92 H 31 H 95/64 09/03/19 15:15 90 34 H 95/57 09/03/19 15:00 86 33 H 125/77 09/03/19 14:45 85 17 88/64 09/03/19 14:30 84 31 H 98/61 09/03/19 14:16 86 29 H 89/66 09/03/19 14:00 84 24 101/74 09/03/19 13:45 35 H 95/64 09/03/19 13:30 85 98/58 BP Pulse Ox 09/04/19 08:26 99 09/04/19 07:27 96 09/04/19 03:51 98 09/03/19 23:34 117/69 100 09/03/19 22:00 09/03/19 21:39 99 09/03/19 21:26 09/03/19 20:33 96 09/03/19 20:00 99 09/03/19 19:50 99 09/03/19 19:40 98 09/03/19 19:30 98 09/03/19 19:20 100 09/03/19 19:10 97 09/03/19 19:00 96 09/03/19 18:50 98 09/03/19 18:40 99 09/03/19 18:30 98 09/03/19 18:15 99 09/03/19 18:00 98 09/03/19 17:46 98 09/03/19 17:03 102/64 98 09/03/19 17:00 98 09/03/19 16:05 100 09/03/19 15:30 98 09/03/19 15:15 95 09/03/19 15:00 09/03/19 14:45 98 09/03/19 14:30 98 09/03/19 14:16 97 09/03/19 14:00 99 09/03/19 13:45 97 09/03/19 13:30 95 - Physical Examination General: No Apparent Distress HEENT: Positive: PERRL Neck: Positive: neck supple Cardiac: Positive: Reg Rate and Rhythm Lungs: Positive: Decreased Breath Sounds Neuro: Positive: Grossly Intact Abdomen: Positive: Soft Extremities: Absent: edema - Labs and Meds Coagulation 09/03/19 09/04/19 Range/Units 12:36 08:29 PT 54.8 H 59.2 H (12.2-14.9) Sec. INR 5.95 H* 6.56 H* (0.87-1.13) APTT 51.4 H (24.2-36.6) Sec. Lipids 09/03/19 Range/Units 11:53 Triglycerides 134 (2-149) mg/dL Cholesterol 84 (50-199) mg/dL HDL Cholesterol 24 L (40-59) mg/dL Cholesterol/HDL Ratio 3.50 % Comprehensive Metabolic Panel 09/03/19 09/04/19 Range/Units 11:53 10:53 Sodium 123 L (137-145) mmol/L Potassium 7.1 H* 6.9 H* (3.6-5.0) mmol/L Chloride 89.9 L (98-107) mmol/L Carbon Dioxide 19 L (22-30) mmol/L BUN 38 H (7-17) mg/dL Creatinine 0.9 (0.7-1.2) mg/dL Glucose 494 H (65-100) mg/dL Calcium 8.4 (8.4-10.2) mg/dL
[2019-09-04] MEDS ORDERED: DEXTROSE 50% IN WATER (25GM) 50 ML SYRINGE IV PRN (13:54)
[2019-09-04] MEDS ORDERED: INSULIN LISPRO 100 UNIT/ML SUB-Q SCH (14:00)
[2019-09-04] MEDS ORDERED: SIMETHICONE 80 MG CHEW TAB PO SCH (14:00)
[2019-09-04] MEDS ORDERED: SODIUM POLYSTYRENE 15 GM/60 ML ORAL LIQD PO ONE (14:30)
--- NOTE | 2019-09-04 15:25 | Gastroenterology Consultation ---
History of Present Illness - Reason for Consult Consult date: 09/04/19 epigastric pain, elevated LFTs Requesting physician: DANTE RUTH - History of Present Illness Patient is a 38 y/o female with multiple medical condition to include cervical cancer, HIV (on Genvoya), Hepatitis C (s/p tx with Mavyret by RASHAWN Yna; no hx of cirrhosis), HTN, DM (uncontrolled), GERD, morbid obesity, sleep apnea, heart failure, and recent admission for STEMI on 08/24/19 s/p PCI to LAD w/ post intervention thrombotic occlusion of the distal LAD and LV apical thrombus (previously on coumadin, now on Brilinta) who presented to ED with recurrent CP and epigastric pain. Upon admission, she was found to have a pericardial effusion w/o signs of cardiac tamponade, hypotension, hyponatremia, hyperkalemia, supratherapeutic INR, and elevated LFTs to which she was admitted. Cardiology following. Abd CT showed a splenic hypodensity (small splenic infarct or perisplenic collection?) of unclear significance. Surgery consulted with no recommendations or surgical intervention. GI has been consulted for epigastric pain and elevated LFTs. This afternoon patient was resting in bed in mild distress 2/2 epigastric pain. Onset of pain is unclear. Patient describes pain as a non-radiating "fullness". Admits to nausea but no vomiting, signs of bleeding, wt loss, or LGI symptoms. No recent trauma. s/p CCY. No NSAIDs or hx PUD. No tylenol or ETOH abuse. No hx of liver disease. Patient previously known to our service with last EGD/colonoscopy in 2013. Past History Past Medical History: acute [place], CAD, COPD, diabetes, GERD, heart failure, HIV/ AIDS, hypertension, liver disease, other (ventricular clot; morbid obesity; sleep apnea; sickle cell trait) Past Surgical History: cholecystectomy, PTCA Social history: denies: smoking, alcohol abuse Medications and Allergies Allergies Allergy/AdvReac Type Severity Reaction Status Date / Time Sulfa (Sulfonamide Allergy Nausea Verified 09/09/13 16:39 Antibiotics) albuterol AdvReac Mild Unknown Verified 03/02/16 08:44 aspirin AdvReac Rash Verified 09/09/13 16:39 Penicillins AdvReac Rash Verified 09/09/13 16:39 Home Medications Medication Instructions Recorded Confirmed Last Taken Type Detemir (Nf) [Levemir (Nf)] 75 units SUB-Q QHS 30 Days units 12/04/16 09/03/19 Unknown Rx Fluconazole [Diflucan TAB] 150 mg PO ONCE #1 tablet 12/04/16 09/03/19 08/17/19 Rx HYDROcodone/ACETAMINOPHEN [[place] 1 each PO Q8H PRN #12 tablet 10/19/17 09/03/19 08/17/19 Rx 7.5-325 Tablet] ALBUTEROL NEB's [Proventil 0.083% 2.5 mg IH Q4HRT PRN #1 nebu 08/30/19 09/03/19 Unknown Rx NEBS] AtorvaSTATin [Lipitor] 40 mg PO QHS #30 tablet 08/30/19 09/03/19 Unknown Rx Elviteg/Tracey/Emtric/Tenofo Ala 1 each PO DAILY 30 Days #30 08/30/19 09/03/19 Unknown Rx [Genvoya (Nf)] Gabapentin 300 mg PO BID #60 cap 08/30/19 09/03/19 Unknown Rx Insulin Aspart Prot/Aspart(Nf) 25 units SQ BID 30 Days units 08/30/19 09/03/19 Unknown Rx [NovoLOG Mix 70/30 VIAL] Pantoprazole [Protonix TAB] 40 mg PO DAILY #30 tablet 08/30/19 09/03/19 Unknown Rx QUEtiapine [SEROquel] 25 mg PO QHS #30 08/30/19 09/03/19 Unknown Rx Ticagrelor [Brilinta] 90 mg PO BID #60 tablet 08/30/19 09/03/19 Unknown Rx Warfarin [Coumadin] 7.5 mg PO DAILY@1700 #30 tablet 08/30/19 09/03/19 Unknown Rx carvediloL [Coreg] 25 mg PO BID #60 tablet 08/30/19 09/03/19 Unknown Rx cloNIDine [Catapres] 0.1 mg PO BID PRN #60 08/30/19 09/03/19 Unknown Rx lisinopriL [Zestril TAB] 20 mg PO QDAY #30 tablet 08/30/19 09/03/19 Unknown Rx methOCARBAMOL [Robaxin TAB] 500 mg PO PRN #40 08/30/19 09/03/19 Unknown Rx oxyCODONE /ACETAMINOPHEN [Percocet 1 tab PO BID PRN #10 tablet 08/30/19 09/03/19 Unknown Rx 5/325 mg] Docusate Sodium [Colace] 100 mg PO BID PRN 09/03/19 09/03/19 Unknown History Active Meds: Active Medications Acetaminophen/Hydrocodone Bitart ([place] 7.5/325) 1 each PO Q8H PRN PRN Reason: PAIN Albuterol (Proventil) 2.5 mg IH Q4HRT PRN PRN Reason: Shortness Of Breath Dextrose (D50w (25gm) Syringe) 50 ml IV Q30MIN PRN; Protocol PRN Reason: Hypoglycemia Docusate Sodium (Colace) 100 mg PO BID PRN PRN Reason: conatipATION Gabapentin (Gabapentin) 300 mg PO BID [facility] Last Admin: 09/04/19 10:10 Dose: Not Given Documented by: Insulin Human Isoph/Insulin Regular (Humulin 70/30) 25 unit SUB-Q BID [facility] Last Admin: 09/04/19 10:10 Dose: 25 unit Documented by: Insulin Human Lispro (Humalog) 0 unit SUB-Q Q6HR [facility]; Protocol Last Admin: 09/04/19 14:17 Dose: 10 unit Documented by: Miscellaneous Medication (Elviteg/Tracey/Emtric/Tenofo Ala) 1 each PO DAILY [facility] Morphine Sulfate (Morphine) 2 mg IV Q4H PRN PRN Reason: Pain , Severe (7-10) Last Admin: 09/04/19 10:16 Dose: 2 mg Documented by: Pantoprazole Sodium (Protonix) 40 mg PO DAILY [facility] Last Admin: 09/04/19 10:09 Dose: 40 mg Documented by: Quetiapine Fumarate (Seroquel) 25 mg PO QHS [facility] Last Admin: 09/03/19 23:02 Dose: Not Given Documented by: Simethicone (Mylicon) 160 mg PO Q6HR [facility] Last Admin: 09/04/19 14:16 Dose: 160 mg Documented by: Ticagrelor (Brilinta) 90 mg PO BID [facility] Last Admin: 09/04/19 10:08 Dose: 90 mg Documented by: medications reviewed/updated as required Review of Systems - Review of Systems All systems: negative Cardiovascular: chest pain Gastrointestinal: abdominal pain (epigastric), nausea Exam - Constitutional Vital Signs: Temp Pulse Resp BP Pulse Ox 98.1 F 67 20 122/86 99 09/04/19 07:27 09/04/19 07:27 09/04/19 08:26 09/04/19 07:27 09/04/19 08:26 General appearance: mild distress, obese (morbid) - EENT Eyes: PERRL, EOM intact ENT: hearing intact - Respiratory Respiratory effort: normal Respiratory: bilateral: diminished - Cardiovascular Rhythm: regular - Gastrointestinal General gastrointestinal: Present: soft, tender (slight-epigastric), non-distended, normal bowel sounds, other (obese) - Integumentary Integumentary: Present: warm - Neurologic Neurological: alert and oriented x3 - Labs CBC & Chem 7: 09/03/19 11:53 09/04/19 10:53 Lab Results: Laboratory Results - last 24 hr 09/03/19 09/03/19 09/04/19 14:28 22:57 07:37 PT INR Sodium Potassium Chloride Carbon Dioxide Anion Gap BUN Creatinine Estimated GFR BUN/Creatinine Ratio Glucose POC Glucose 427 H 430 H Calcium Troponin T 0.956 H* 09/04/19 09/04/19 09/04/19 08:29 10:53 11:14 PT 59.2 H INR 6.56 H* Sodium 123 L Potassium 6.9 H* Chloride 89.9 L Carbon Dioxide 19 L Anion Gap 21 BUN 38 H Creatinine 0.9 Estimated GFR > 60 BUN/Creatinine Ratio 42 Glucose 494 H POC Glucose 380 H Calcium 8.4 Troponin T 09/04/19 14:36 PT INR Sodium Potassium Chloride Carbon Dioxide Anion Gap BUN Creatinine Estimated GFR BUN/Creatinine Ratio Glucose POC Glucose 404 H Calcium Troponin T Assessment and Plan 1.epigastric pain 2.splenic hypodensity on CT 3.elevated LFTs 4.H/o Hep C (s/p tx) 5.DM (uncontrolled) -afebrile -WBC and H/H WNL -LFTs- T.qian 0.20, AST 114, ALT 102, alk phos 619 -lipase normal -abd CT showed splenic hypodensity; no acute inflammatory process and liver normal -last EGD/colonoscopy [place] [address] Mir -etiology-likely multifactorial (epigastric pain-poss underlying gastroparesis vs other; splenic hypodensity-possible embolism from ventrical vs infectious, however small and non-concerning; elevated LFTs- hypotension/congestion/medications/obesity/other) -will order hepatitis panel, CD4, and toxoplasma -no plan for EGD at this time unless emergent; patient high risk due to recent cardiac events -PPI -consider reglan -okay for clear liquids as tolerated -optimize glycemic control -limit/avoid narcotics for this may exacerbate symptoms -continue to trend labs and supportive care -of note, patient states she is going to get her clothes on to leave and go to [facility] for care 6.recent STEMI (08/23/19; s/p PCI of the mild LAD) 7.pericardial effusion 8.LV apical thrombus (supratherapeutic INR of 6.56; d/c coumadin now on Brilinta) 9.hyponatremia 10.hyperkalemia 11.HTN 12.HIV 13.obesity 14.chronic pain
--- NOTE | 2019-09-04 15:59 | Discharge Summary ---
Providers - Providers Date of Admission: 09/03/19 15:15 Attending physician: DANTE RUTH 09/03/19 15:05 Consult to Physician [CONS] Urgent Comment: Consulting Provider: AMINTA CORTEZ Physician Instructions: Reason For Exam: chest pain 09/04/19 10:45 Consult to Physician [CONS] Routine Comment: Consulting Provider: ALEKS GARCIA Physician Instructions: I notified Reason For Exam: splenic infarct? with supratherapeutic INR 09/04/19 10:47 Consult to Physician [CONS] Routine Comment: Consulting Provider: TAMIA MARTINEZ Physician Instructions: Reason For Exam: severe epigastric abdominal pains, high ast/alt 09/04/19 13:51 Consult to Physician [CONS] Routine Comment: Consulting Provider: WOJCIECH BROWN Physician Instructions: Reason For Exam: severe electrolyte imbalances Hospitalization Condition: Undetermined Hospital course: Patient threatening to leave AMA. I spoke with her and relied the risk, pt voiced U&A. She wants to go to [place] because that is where all her doctors are located and she told the EMS that is where she wanted to go but they brought her here. Patient is a 38 yo woman with a history of HIV, Cervical cancer, Hepatitis C, hypertension and IDDM type 2 who presents to [facility] ED with recurrent CP. She was admitted 08/24/2019 for STEMI s/p successful PCI to LAD and thrombosis with complete occlusion of distal LAD that was not corrected. Patient then was discharged on 08/30/2019 but return on 09/03/2019 with chest pains but more so epigastric abdominal pains. In the emergency room, a CT of the chest was ordered that reported the presence of a pericardial effusion. Cardiology performed a limited bedside 2-D echocardiogram that revealed a small to moderate-sized circumferential pericardial effusion, with no signs of cardiac tamponade. The effusion was not present on the echocardiogram 5 days ago. In addition, there has been a deterioration in left ventricular systolic function, currently overall left ventricular systolic function is moderately to severely impaired per Cardiology. Patient was found to have severe hyponatremia of 124, severe hyperkalemia, of 7.1, elevated BUN of 42, and elevated liver transaminases. There is a mild troponin elevation, and the INR is 5.9, supratherapeutic on warfarin. EKG is sinus rhythm with QS complexes in the anterior wall, consistent with her recent anterior myocardial infarction. * pCXR: right upper opacity unchanged from prior CXR * CTA chest FINDINGS: Bolus: Contrast bolus timing is adequate. PTE: No filling defect is present to suggest PTE. Mediastinum: Heart size is normal although there is a large pericardial effusion measuring up to 1.9 cm in thickness anteriorly. No pericardial calcifications or nodularity. The aorta is widely pat ent and normal caliber. No pathologic mediastinal adenopathy. Lungs: Small bilateral layering pleural effusions are identified. There is ill-defined groundglass opacity in the right upper lobe measuring up to 4-5 cm in greatest dimension. This probably represents focal congestion although early infiltrate cannot be excluded. There is mild compressive atelectasis in the lower lobes, left greater than right. The remainder of the lungs are clear. Bones: Degenerative changes in the spine with nothing acute. Upper abdomen: Limited imaging of the upper abdomen shows nothing acute. IMPRESSION: No pulmonary embolus is detected. Large pericardial effusion. Small bilateral layering pleural effusions. Focal right upper lobe airspace opacity as described. This probably represents focal congestion. If fever is present, infiltrate could be considered. * CT abd/pelvis with contrast IMPRESSION: Large pericardial effusion and small bilateral pleural effusions. Small ascites. A 3.9 x 3.0 x 2.2 cm splenic hypodensity is identified of uncertain etiology. This does not have the typical appearance of a splenic hemangioma. A small splenic infarct or perisplenic collection could be considered. No acute inflammatory process is appreciated in the abdomen or pelvis. Recurrent Chest pains, more so epigastric pains, suspect gastroparesis vs other intraabdominal disorder vs cardiac vs other: Cardiology is following, consult GI, downgrade diet to NPO/bowel rest to clears tomorrow, treat with PPI Pericardial Effusion: serial ECHO, monitor closely, Cardiology following Ischemic Cardiomyopathy, acute systolic heart failure: Cardiology following Left Ventricular Apical thrombus: a/c on hold, restart once INR 2-3 Hyperkalemia, severe with perserved renal function, Cr 1.0: patient received Calcium, insulin, bicarb yesterday, repeat potassium level stat Hyponatremia, severe, hypo-osm: IVF but very carefully due to the systolic heart failure HIV by history: on antivirals Type 1 DM with hyperglycemia: add SSI, adjust insulin Coagulopathy, Supratherapeutic INR, normal H/H: hold Warfarin, serial coags, let trend down Elevated transaminases, history of Hepatitis C: GI consult Splenic hypodensity, etiology uncertain: consulted [facility] because with supratherapeutic INR and ?splenic infarct, high risk of bleeding, I called [facility], watch H/H closely DVT ppx already high INR Disposition: [id number] LEFT AGAINST MED ADVICE Time spent for discharge: 35 mintues Core Measure Documentation - Palliative Care Palliative Care/ Comfort Measures: Not Applicable - Core Measures Any of the following diagnoses?: none - VTE Discharge Requirements Deep Vein Thrombosis/Pulmonary Embolism Present on Admission: No Has pt received <5 days of overlap therapy or INR<2.0: No Anticoagulant overlap therapy prescribed at discharge: No Contraindication No Overlap Therapy order at DC: Not Indicated Exam - Constitutional Vitals: Temp Pulse Resp BP Pulse Ox 98.1 F 91 H 20 122/86 99 09/04/19 07:27 09/04/19 11:30 09/04/19 08:26 09/04/19 07:27 09/04/19 08:26 Plan Forms: AMA Form, Warfarin Discharge Instruction
[2019-09-04] MEDS ORDERED: WARFARIN NO DOSE TODAY PO ONE (17:00)
== END 2019-09-04 16:31 | disposition left against medical advice (07) | DRG 280 ==
LOC: ED 10:54 → CC1 15:15 → 4A 16:31
PROVIDERS: ADMIT Internal Medicine; ATTEND Internal Medicine
DX: I11.0 Hypertensive heart disease with heart failure (principal); I50.21 Acute systolic (congestive) heart failure; I21.9 Acute myocardial infarction, unspecified; I31.3 Pericardial effusion (noninflammatory); E87.1 Hypo-osmolality and hyponatremia; Z68.42 Body mass index [BMI] 45.0-49.9, adult; J90 Pleural effusion, not elsewhere classified; D68.9 Coagulation defect, unspecified; B20 Human immunodeficiency virus [HIV] disease; N28.9 Disorder of kidney and ureter, unspecified; E87.5 Hyperkalemia; I95.9 Hypotension, unspecified; I25.5 Ischemic cardiomyopathy; E66.01 Morbid (severe) obesity due to excess calories; E86.0 Dehydration; E87.8 Other disorders of electrolyte and fluid balance, not elsewhere classified; J44.9 Chronic obstructive pulmonary disease, unspecified; I51.3 Intracardiac thrombosis, not elsewhere classified; K31.84 Gastroparesis; E10.43 Type 1 diabetes mellitus with diabetic autonomic (poly)neuropathy; E78.5 Hyperlipidemia, unspecified; E10.65 Type 1 diabetes mellitus with hyperglycemia; D73.9 Disease of spleen, unspecified; K21.9 Gastro-esophageal reflux disease without esophagitis; G89.29 Other chronic pain; Z95.1 Presence of aortocoronary bypass graft; Z82.49 Family history of ischemic heart disease and other diseases of the circulatory system; Z90.49 Acquired absence of other specified parts of digestive tract; Z80.8 Family history of malignant neoplasm of other organs or systems; Z88.2 Allergy status to sulfonamides; Z88.0 Allergy status to penicillin; Z88.1 Allergy status to other antibiotic agents; I25.2 Old myocardial infarction; Z79.4 Long term (current) use of insulin
CPT/HCPCS: 36415; 71045; 71275; 74177; 80048; 80053; 80061; 82962; 83690; 83880; 84484; 84703; 85025; 85610; 85730; 87116; 93005; 93010; 93308; 93321; 93325; 94760; G0378; J0610; J1200; J1815; J1885; J2270; J2405; J7030; Q9967